=== PATIENT | female | born 1970 | race Caucasian/White ===

== ENCOUNTER → 2020-04-30 13:50 | Outpatient (CLI) | payer OTHER, SELFPAY ==
--- NOTE | ~2020-04-30 | XR_ITS ---
XR_CERV2-3V_CR DATE: 04/30/2020 14:09 INDICATION: Cervical radiculopathy TECHNIQUE: AP, lateral, swimmer's, open-mouth and odontoid views COMPARISON: None FINDINGS: There is reversal cervical curvature. C1 and C2 are normally aligned and the odontoid process is intact. There is minimal retrolisthesis at C4-5. There is fusion of the C5 and C6 vertebral bodies, likely postsurgical. There is moderately prominent degenerative disc disease at C3-4 and C4-5 as well as C6-7. No fracture or dislocation or locked facet or prevertebral soft tissue swelling is detected. Bilateral cervical ribs. IMPRESSION: Reversal of cervical curvature Status post anterior fusion at C5-6 Degenerative disc disease at C3-4, C4-5 and C6-7 Bilateral cervical ribs Reviewed, dictated and finalized at [facility]. Reviewed, dictated and finalized at location B.
== END ==
PROVIDERS: Visit Provider Internal Medicine
DX: M54.12 Radiculopathy, cervical region (principal); Z98.1 Arthrodesis status; M50.321 Other cervical disc degeneration at C4-C5 level; M50.322 Other cervical disc degeneration at C5-C6 level; M50.323 Other cervical disc degeneration at C6-C7 level
CPT/HCPCS: 72040

== ENCOUNTER 2020-05-15 07:13 | Outpatient (CLI) | payer OTHER, BC, SELFPAY ==
--- NOTE | ~2020-05-15 | MM_ITS ---
EXAMINATION: MM screening emilia BI w pretty HISTORY: Screening mammogram TECHNIQUE: Craniocaudal and mediolateral oblique 3-D tomosynthesis images were obtained and synthetic 2-D images were generated. CAD analysis was submitted and interpreted. COMPARISON: 05/11/2019, 05/09/2018, 05/03/2017 bilateral digital screening mammogram examinations BREAST PARENCHYMAL COMPOSITION: There are scattered areas of fibroglandular density. FINDINGS: Biopsy marker on the left; history of prior benign left breast biopsies. There is no eviden ce of suspicious mass, calcification, or architectural distortion to suggest malignancy in either stephanie ast. Occasional benign calcifications. There has been no suspicious interval change. IMPRESSION: 1. No mammographic evidence of malignancy. 2. Recommend routine screening mammography in one year. BI-RADS Category 2: Benign finding(s). Reviewed, dictated and finalized at location A.
== END 2020-05-15 07:14 | disposition home or self-care (01) ==
PROVIDERS: PCP Internal Medicine; Visit Provider Obstetrics & Gynecology
DX: Z12.31 Encounter for screening mammogram for malignant neoplasm of breast (principal)
CPT/HCPCS: 77063; 77067

== ENCOUNTER → 2021-02-21 03:03 | Outpatient (CLI) | payer OTHER, BC, SELFPAY ==
[2021-02-21 19:46] LABS: SARS-CoV-2 RNA PCR Negative
== END ==
PROVIDERS: PCP Internal Medicine; Visit Provider Internal Medicine Gastroenterology
DX: Z01.812 Encounter for preprocedural laboratory examination (principal); Z20.822 Contact with and (suspected) exposure to COVID-19
CPT/HCPCS: C9803; U0003; U0005

== ENCOUNTER 2021-02-24 00:48 | Day surgery (SDC) | payer OTHER, BC, SELFPAY ==
[2021-02-11 15:42] VITALS: BMI 23.1
--- NOTE | 2021-02-11 15:56 | PC.NURSE ---
Pt. was COVID + 07/2021. Symptoms included headache, sore throat, and fatigue. No hospitalization required. Gary Wilks RN 02/11/21 [id number]
[2021-02-24 07:03] VITALS: BP 120/64; PULSE 63; RESP 17; TEMP 35.8; O2SAT 99; BMI 24.3
[2021-02-24] MEDS: LACTATED RINGERS 1,000 ML 150 ML IV CONT (07:11)
--- NOTE | 2021-02-24 07:24 | P.PNAN_ITS ---
Anes - Initial Pre Proc Eval Procedure: Operation Date: 02/24/21 07:30 Proposed Procedures p Screening Colonoscopy - Heath Hinds MD Date/Time: 02/24/21 07:24 Surgeon: Heath Hinds MD Pre Op Diagnosis: Neoplasm Screening Patient Data Age: 50 Gender: F Height: 5 ft 5 in Weight: 66.3 kg Last Vital Signs Temp 96.4 F L 02/24/21 07:03 Pulse 63 02/24/21 07:03 Resp 17 02/24/21 07:03 BP 120/64 02/24/21 07:03 Pulse Ox 99 02/24/21 07:03 Allergies Allergy/AdvReac Type Severity Reaction Status Date / Time Penicillins Allergy Mild unknown Verified 02/24/21 07:02 Home Medications Medication Instructions Recorded Confirmed Type levocetirizine 5 mg tablet 5 mg PO DAILY #90 tablet 11/21/19 02/24/21 Rx rosuvastatin 20 mg tablet See Rx Instructions .ROUTE 11/21/20 02/24/21 Rx .COMPLEX #90 tablet cetirizine [Zyrtec] 10 mg PO DAILY 02/11/21 02/24/21 History Patient hx anesthesia problems: none Family hx anesthesia problems: none [facility] Past Medical History Medical History (Updated 02/24/21 @ 07:20 by Oswaldo Roland MD) Dyslipidemia GERD (gastroesophageal reflux disease) Social History Social History (System 09/06/19 @ 10:43 by Shruti Atkins) Smoking status: Never smoker Alcohol intake: never Drinks per week: 3 Living arrangements: with family Spiritual care concerns: No Anes - Eval Final PreProcedure Day of Procedure 02/24/21 07:24 Patient weight: overweight Heart: regular rate and rhythm Lungs: clear to auscultation Airway: Mallampati scale class II Neurological: alert and oriented Last oral intake: >/= 8 hours ASA classification: II Emergent: no Anesthetic plan: proceed Anesthesia type and monitoring: general GIVS and standard monitoring Informed Consent: The patient's anesthetic plan and its attendant risks and benefits were discussed with the patient/family/POA. Questions were solicited and answers provided to the satisfaction of the patient/family/POA.
--- NOTE | 2021-02-24 07:28 | PM.HPGS ---
History of Present Illness History of Present Illness Consent: Risks, benefits, and alternatives have been discussed and questions answered. Patient agrees to proceed with procedure. Chief complaint: Neoplasm Screening Narrative: Syeda Jenkins is a 50 year old female here for first screening colonoscopy Review of Systems Constitutional: Constitutional: Denies headache(s) and Denies weakness Eyes: Eyes: Denies blurry vision ENT: Reports Normal hearing present, Denies headache(s) and Denies neck pain Cardiovascular: Cardiovascular: Denies chest pain and Denies dyspnea Respiratory: Respiratory: Denies dyspnea Gastrointestinal: Gastrointestinal: Reports no additional gastrointestinal complaints Genitourinary: Genitourinary: Denies dysuria Musculoskeletal: Musculoskeletal: Denies neck pain Integumentary/Breasts: Skin/Breast: Denies dry skin Neurologic: Reports Normal hearing present, Denies headache(s) and Denies weakness Psychiatric: Psychiatric: Denies anxiety Endocrine: Endocrine: Denies change in body appearance Hematologic/Lymphatic: Hematologic/Lymphatic: Denies easy bleeding Allergic/Immunologic: Allergic/Immunologic: Denies urticaria [facility] Past Medical History Medical History (Updated 02/24/21 @ 07:29 by Heath Hinds MD) Colon cancer screening Dyslipidemia GERD (gastroesophageal reflux disease) Social History Social History (System 09/06/19 @ 10:43 by Shruti Atkins) Smoking status: Never smoker Alcohol intake: never Drinks per week: 3 Living arrangements: with family Spiritual care concerns: No Meds Home Medications and Allergies Home Medications Medication Instructions Recorded Confirmed Type levocetirizine 5 mg tablet 5 mg PO DAILY #90 tablet 11/21/19 02/24/21 Rx rosuvastatin 20 mg tablet See Rx Instructions .ROUTE 11/21/20 02/24/21 Rx .COMPLEX #90 tablet cetirizine [Zyrtec] 10 mg PO DAILY 02/11/21 02/24/21 History Allergies Allergy/AdvReac Type Severity Reaction Status Date / Time Penicillins Allergy Mild unknown Verified 02/24/21 07:02 Vital Signs Vital Signs - 24 hr 02/24/21 07:03 Temperature 96.4 F L Pulse Rate 63 Respiratory Rate 17 Blood Pressure 120/64 Pulse Oximetry 99 Exam Const: General: comfortable and no acute distress HENMT: General nose exam: Normal nares present Eyes: General: appearance normal, both eyes and all related structures Neck: Neck: no JVD Resp: Auscultation: clear to auscultation bilaterally Cardio: Rate: regular rate Rhythm: regular rhythm GI: Inspection: non-distended GI Palp: Yes Soft to palpation Skin: General skin exam: normal color Neuro: General: gait normal Speech: normal speech Extrem: General: normal to inspection Psych: Mental Status: mental status grossly normal Assessment and Plan Assessment and plan (1) Colon cancer screening: Code(s): Z12.11 - Encounter for screening for malignant neoplasm of colon Status: Acute Assessment and Plan: colonoscopy
[2021-02-24 07:49] VITALS: BP 81/38; PULSE 57; RESP 18; O2SAT 100
[2021-02-24 07:59] VITALS: BP 79/40; PULSE 54; RESP 18; O2SAT 100
[2021-02-24 08:09] VITALS: BP 86/50; PULSE 56; RESP 18; O2SAT 100
== END 2021-02-24 08:17 | disposition home or self-care (01) ==
PROVIDERS: PCP Internal Medicine; Visit Provider Internal Medicine Gastroenterology
PROC: 0DJD8ZZ Inspection of Lower Intestinal Tract, Via Natural or Artificial Opening Endoscopic (ICD-10-PCS; CPT 45378; principal; 2021-02-24 07:30)
DX: Z12.11 Encounter for screening for malignant neoplasm of colon (principal); K64.8 Other hemorrhoids; K21.9 Gastro-esophageal reflux disease without esophagitis; E78.5 Hyperlipidemia, unspecified
CPT/HCPCS: 45378; C9803; J7120; U0003; U0005

== ENCOUNTER 2021-05-18 07:10 | Outpatient (CLI) | payer OTHER, BC, SELFPAY ==
--- NOTE | ~2021-05-18 | MM_ITS ---
EXAMINATION: MM screening [facility] BI w pretty HISTORY: Screening mammogram TECHNIQUE: Craniocaudal and mediolateral oblique 3-D tomosynthesis images were obtained and synthetic 2-D images were generated. CAD analysis was submitted and interpreted. COMPARISON: 05/15/2020, 05/11/2019, 05/09/2018 BREAST PARENCHYMAL COMPOSITION: There are scattered areas of fibroglandular density. FINDINGS: There is no evidence of suspicious mass, calcification, or architectural distortion to sugg est malignancy in either breast. There has been no suspicious interval change. IMPRESSION: 1. No mammographic evidence of malignancy. 2. Recommend routine screening mammography in one year. BI-RADS Category 1: Negative Reviewed, dictated and finalized at location A.
== END 2021-05-18 07:11 | disposition home or self-care (01) ==
LOC: ANHIMG 07:11
PROVIDERS: PCP Internal Medicine; Visit Provider Obstetrics & Gynecology
DX: Z12.31 Encounter for screening mammogram for malignant neoplasm of breast (principal)
CPT/HCPCS: 77063; 77067

== ENCOUNTER 2022-05-20 07:08 | Outpatient (CLI) | payer OTHER, BC, SELFPAY ==
--- NOTE | ~2022-05-20 | MM_ITS ---
EXAMINATION: MM screening emilia BI w pretty HISTORY: Screening TECHNIQUE: Craniocaudal and mediolateral oblique 3-D tomosynthesis images were obtained and synthetic 2-D images were generated. CAD analysis was submitted and interpreted. COMPARISON: Comparison to multiple prior studies sequentially, with oldest reviewed study dated 04/2016. BREAST PARENCHYMAL COMPOSITION: There are scattered areas of fibroglandular density. FINDINGS: There is a cluster of small subareolar masses of the right breast, largest measuring 4 mm. The left breast is stable without evidence for malignancy. No suspicious calcifications or architectu ral distortion. IMPRESSION: 1. Cluster of small subareolar right breast masses measuring up to 4 mm. 2. Additional mammographic views and possible breast ultrasound are recommended. BI-RADS Category 0: Incomplete: Needs additional imaging evaluation. Reviewed, dictated and finalized at location A. IMPRESSION: 1. Cluster of small subareolar right breast masses measuring up to 4 mm. 2. Additional mammographic views and possible breast ultrasound are recommended . BI-RADS Category 0: Incomplete: Needs additional imaging evaluation.
== END 2022-05-20 07:09 | disposition home or self-care (01) ==
PROVIDERS: PCP Internal Medicine; Visit Provider Obstetrics & Gynecology
DX: Z12.31 Encounter for screening mammogram for malignant neoplasm of breast (principal); R92.8 Other abnormal and inconclusive findings on diagnostic imaging of breast
CPT/HCPCS: 77063; 77067

== ENCOUNTER → 2022-06-07 07:46 | Outpatient (CLI) | payer OTHER, BC, SELFPAY ==
--- NOTE | ~2022-06-07 | MMUS_ITS ---
EXAMINATION: MM diagnostic emilia RT w pretty, US breast RT limited HISTORY: Cluster of small subareolar right breast masses measuring up to 4 mm reported on 05/20/2022 s creening mammogram TECHNIQUE: Additional 3-D tomosynthesis images of the right breast were performed and synthetic 2-D i mages were generated. CAD analysis was submitted and interpreted. High resolution targeted right suba reolar and 5-7:00 right breast ultrasound was performed. COMPARISON: 05/20/2022 bilateral screening mammogram FINDINGS: MAMMOGRAPHIC FINDINGS: At least 2 circumscribed approximately 3 and 3.5 mm opacities are noted approximately 2 cm deep to th e nipple in the subareolar area. No suspicious mammographic mass or architectural distortion, maligna nt constipation, skin thickening or retraction is detected. ULTRASOUND: There are 2 small circumscribed sonolucencies measuring approximately 2.6 x 3 x 4.1 mm and 3.4 x 2.9 x 3.3 mm in the subareolar area, consistent with small cyst, corresponding to the mammographic opacit ies. No suspicious mass or shadowing is evident in the subareolar area or between 5-7 o'clock. IMPRESSION: 1. Benign findings 2. Routine annual mammographic screening is recommended BI-RADS Category 2: Benign finding(s). Reviewed, dictated and finalized at location A. IMPRESSION: 1. Benign findings 2. Routine annual mammographic screening is recommended BI-RADS Category 2: Benign finding(s).
== END ==
PROVIDERS: Visit Provider Obstetrics & Gynecology
DX: R92.8 Other abnormal and inconclusive findings on diagnostic imaging of breast (principal)
CPT/HCPCS: 76642; 77061; 77065; G0279

== ENCOUNTER → 2023-06-13 07:38 | Outpatient (CLI) | payer OTHER, BC, SELFPAY ==
--- NOTE | ~2023-06-13 | MMUS_ITS ---
EXAMINATION: MM diagnostic emilia BI w pretty, US breast LT limited HISTORY: Bilateral breast pain TECHNIQUE: Additional 3-D tomosynthesis images of the breasts were performed and synthetic 2-D images were generated. CAD analysis was submitted and interpreted. High resolution Limited left breast ultr asound was performed. COMPARISON: Comparison to multiple prior studies sequentially, with oldest reviewed study dated 05/09. BREAST PARENCHYMAL COMPOSITION: Breast composed of scattered areas of fibroglandular density FINDINGS: MAMMOGRAPHIC FINDINGS: There are developing asymmetries in the lower inner quadrant of the left breast as well as superiorly in the left breast. There are no suspicious calcifications or architectural distortion. ULTRASOUND: Limited left breast ultrasound: At 7:00, 4 cm from the nipple there is an oval hypoechoic mass with l ow level internal echoes measuring 3 mm. There is no posterior features or internal vascularity. At 3 :00 near the areola there is an oval hypoechoic 4 mm mass with low level internal echoes, no signific ant posterior features or internal vascularity. At 2:00, 1 cm from the nipple there is a similar-appe aring 3 mm hypoechoic mass. At 1:00, 1 cm from the nipple there is a 2 mm cyst. IMPRESSION: 1. Probable benign left breast masses, most likely complicated cysts. 2. Recommend 6 month follow-up diagnostic left mammogram and ultrasound BI-RADS category 3, probably benign findings. Reviewed, dictated and finalized at location A. IMPRESSION: 1. Probable benign left breast masses, most likely complicated cysts. 2. Recommend 6 month follow-up diagnostic left mammogram and ultrasound BI-RADS category 3, probably benign findings.
== END ==
PROVIDERS: PCP Obstetrics & Gynecology; Visit Provider Obstetrics & Gynecology
DX: R92.8 Other abnormal and inconclusive findings on diagnostic imaging of breast (principal)
CPT/HCPCS: 76642; 77062; 77066; G0279

== ENCOUNTER 2023-12-12 07:43 | Outpatient (CLI) | payer OTHER, BC, SELFPAY ==
--- NOTE | ~2023-12-12 | MMUS_ITS ---
EXAMINATION: MM diagnostic emilia LT w pretty, US breast LT complete HISTORY: Follow-up left breast masses TECHNIQUE: Additional 3-D tomosynthesis images of the left breast were performed and synthetic 2-D im ages were generated. CAD analysis was submitted and interpreted. High resolution complete left breast ultrasound was performed. COMPARISON: Comparison to multiple prior studies sequentially, with oldest reviewed study dated 05/11. BREAST PARENCHYMAL COMPOSITION: Not dense: There are scattered areas of fibroglandular density. FINDINGS: MAMMOGRAPHIC FINDINGS: There are no suspicious masses, calcifications or architectural distortion in the left breast. There are tissue markers from previous benign biopsies. There are benign left breast calcifications. ULTRASOUND: Complete US of all 4 quadrants of the left breast and retroareolar region was reviewed. The areola there is a 3 mm simple cyst. No suspicious masses in the left breast to suggest malignancy . IMPRESSION: 1. No evidence for malignancy in the left breast. Benign findings. 2. Routine yearly screening mammogram and regular clinical breast examination are recommended. BI-RADS Category 2: Benign finding(s). Reviewed, dictated and finalized at location A. IMPRESSION: 1. No evidence for malignancy in the left breast. Benign findings. 2. Routine yearly screening mammogram and regular clinical breast examination a re recommended. BI-RADS Category 2: Benign finding(s).
== END 2023-12-12 07:44 ==
LOC: MICIMG 07:43
PROVIDERS: PCP Obstetrics & Gynecology; Visit Provider Obstetrics & Gynecology
DX: R92.8 Other abnormal and inconclusive findings on diagnostic imaging of breast (principal)
CPT/HCPCS: 76641; 77061; 77065; G0279

== ENCOUNTER 2024-05-04 15:12 | Outpatient (CLI) | payer OTHER, BC, SELFPAY ==
--- NOTE | ~2024-05-04 | MM_ITS ---
EXAMINATION: MM screening emilia BI w pretty HISTORY: Screening TECHNIQUE: Craniocaudal and mediolateral oblique 3-D tomosynthesis images were obtained and synthetic 2-D images were generated. CAD analysis was submitted and interpreted. COMPARISON: Comparison to multiple prior studies sequentially, with oldest reviewed study dated 05/15. BREAST PARENCHYMAL COMPOSITION: Not dense: There are scattered areas of fibroglandular density. FINDINGS: There is no evidence of suspicious mass, calcification, or architectural distortion to sugg est malignancy in either breast. There has been no suspicious interval change. IMPRESSION: 1. No mammographic evidence of malignancy. 2. Recommend routine screening mammography in one year. BI-RADS Category 1: Negative Reviewed, dictated and finalized at location B.
== END 2024-05-04 15:13 | disposition home or self-care (01) ==
PROVIDERS: PCP Nurse Practitioner; Visit Provider Obstetrics & Gynecology
DX: Z12.31 Encounter for screening mammogram for malignant neoplasm of breast (principal)
CPT/HCPCS: 77063; 77067

== ENCOUNTER 2024-11-07 11:03 | Outpatient (CLI) | payer OTHER, BC, SELFPAY ==
--- NOTE | ~2024-11-07 | US_ITS ---
EXAMINATION: US pelvic complete w TV DATE: 11/07/2024 11:29 INDICATION: Left lower quadrant abdominal and pelvic pain TECHNIQUE: Multiple transabdominal and endovaginal sonographic images of the pelvis were obtained. COMPARISON: None. FINDINGS: The retroverted uterus measures 8.6 x 6.3 x 6.0 cm. The endometrial complex measures 8 mm in thickne ss. There is heterogeneous echogenicity myometrium with numerous tiny anechoic myometrial subendometr ial cysts with associated refraction artifact resulting in a striated appearance consistent with diff use adenomyosis. The right ovary measures 2.3 x 1.5 x 2.0 cm. The left ovary measures 2.5 x 1.4 x 1.1 cm. There is normal vascular flow in the ovaries. There is small amount of likely physiologic free f luid in the pelvis. IMPRESSION: 1. Heterogeneous myometrium with numerous tiny anechoic myometrial and some endometrial cysts consist ent with diffuse adenomyosis. Otherwise unremarkable pelvic ultrasound. Reviewed, dictated and finalized at location A. [employer] ASSOCIATE IMPRESSION: 1. Heterogeneous myometrium with numerous tiny anechoic myometrial and some end ometrial cysts consistent with diffuse adenomyosis. Otherwise unremarkable pelv ic ultrasound.
== END 2024-11-07 11:04 | disposition home or self-care (01) ==
LOC: GOSHIMG 11:04
PROVIDERS: PCP Obstetrics & Gynecology; Visit Provider Obstetrics & Gynecology
DX: R10.2 Pelvic and perineal pain (principal)
CPT/HCPCS: 76830; 76856

== ENCOUNTER 2024-11-16 09:11 | Day surgery (SDC) | payer OTHER, BC, SELFPAY ==
--- NOTE | 2024-11-14 15:48 | PM.IMHP ---
H&P: HPI History of Present Illness Date/Time: 11/14/24 15:48 Chief Complaint: Postmenopausal bleeding Narrative: This 54-year-old female with postmenopausal bleeding after 2 years. Ultrasound showed the endometrial 8mm. Light of that she hysteroscopy dilatation curettage risks and benefits reviewed exclusive aspiration bleeding transfusion perforation bowel bladder ureters or other organs with need for open laparotomy. She received the [facility] [place]out entitled hysteroscopy. She had questions answered to her satisfaction. She asked to proceed Review of Systems Review of Systems: All systems reviewed & are unremarkable except as noted in HPI and below Constitutional: Constitutional: Denies headache(s) and Denies weakness Eyes: Eyes: Denies blurry vision ENT: Reports Normal hearing present, Denies headache(s) and Denies neck pain Cardiovascular: Cardiovascular: Denies chest pain and Denies dyspnea Respiratory: Respiratory: Denies dyspnea Gastrointestinal: Gastrointestinal: Reports no additional gastrointestinal complaints Genitourinary: Genitourinary: Denies dysuria Musculoskeletal: Musculoskeletal: Denies neck pain Integumentary/Breasts: Skin/Breast: Denies dry skin Neurologic: Reports Normal hearing present, Denies headache(s) and Denies weakness Psychiatric: Psychiatric: Denies anxiety Endocrine: Endocrine: Denies change in body appearance Hematologic/Lymphatic: Hematologic/Lymphatic: Denies easy bleeding Allergic/Immunologic: Allergic/Immunologic: Denies urticaria PMFSH Past Medical History Medical History Colon cancer screening GERD (gastroesophageal reflux disease) Dyslipidemia Social History Social History Smoking status: Never smoker Alcohol intake: current Drinks per week: 3 Lack of Transportation: No Lack of Food: Never True Current Housing: I Have Housing Concerned About Future Housing: No Difficulty Paying Gas/Electric Bills: No Difficulty Paying for Meds: No Currently Unemployed: No Education: Master's Degree or Higher Difficulty w/ Childcare or Family Care: No Living arrangements: with family Spiritual care concerns: No Meds Home Medications and Allergies Home Medications ?Medication ?Instructions ?Recorded ?Confirmed ?Type levocetirizine 5 mg tablet (Xyzal) 5 mg PO DAILY 06/13/24 06/13/24 History fluticasone propionate 50 See Rx Instructions .Route 07/12/24 Rx mcg/actuation nasal .COMPLEX #48 grams spray,suspension rosuvastatin 20 mg tablet See Rx Instructions .Route 07/12/24 Rx .COMPLEX #90 tabs Allergies Allergy/AdvReac Type Severity Reaction Status Date / Time Penicillins Allergy Mild unknown Verified 06/13/24 07:22 Exam Const: General: cooperative, healthy appearing and comfortable Nutritional Appearance: average body habitus Orientation/consciousness: oriented to person, oriented to place and oriented to time HENMT: Head: normal to inspection Resp: Effort & Inspection: normal respiratory effort Cardio: Rate: regular rate Rhythm: regular rhythm Heart sounds: S1 normal heart sound present and S2 normal heart sound present GI: Inspection: normal to inspection Auscultation: normal bowel sounds : External Female Exam: normal external appearance Speculum Exam - Vagina: normal appearance of the vagina and vaginal bleeding Speculum Exam - Cervix: normal appearance of the cervix Bimanual exam- vagina & uterus: enlarged Bimanual Exam- Adnexa, other: normal adnexae Assessment and Plan Assessment and plan (1) Postmenopausal bleeding: Code(s): N95.0 - Postmenopausal bleeding Status: Acute Plan Proceed with hysteroscopy dilatation curettage
--- NOTE | 2024-11-15 08:42 | PC.NURSE ---
Report to the Outpatient Waiting Room, entrance under the green pavilion located off [facility], at time _0915_ on date _[id number]_. Planned Procedure Time: _1115_.? Time changes happen often and if your time is changed the preop area will call you the afternoon before. - You and your visitor will be asked to self-screen and do not enter if you have any COVID symptoms. Please call surgeon if you need to reschedule. - A mask is optional within the hospital at this time. Patients may have clear liquids (water, carbonated beverages, clear teas, apple juice) until 3 hours prior to surgery with a maximum of 20 ounces. - No food from midnight until time of surgery and no smoking, or chewing tobacco (or any form of nicotine). No chewing gum, candy or mints. Take only the following medications with a SIP of water on the morning of surgery: __Flonase if needed.__ DO NOT STOP ANY OF YOUR OTHER PRESCRIPTION MEDICATIONS PRIOR TO SURGERY EXCEPT THE FOLLOWING Hold all vitamins and supplements for 3 days per anesthesiologist. Medications to discontinue per physician Date to take last dose__Stop vitamins now.___ Please no make-up, nail hong konger, hairspray, perfume, deodorant, or body powder the day of surgery.? No jewelry (including any body piercings) or valuables the day of surgery, leave them at home.? Please take a shower or bath the night before, or the morning of, surgery with an antibacterial soap.? Wear comfortable, loose fitting clothing.? - Jewelry must be removed prior to entering the operating room.? Rings and piercings that are not removed may be cut off. - The hospital will not accept responsibility for valuables.? - Please leave all valuables, including medications, at home the day of surgery. If you are going home after surgery, a licensed screw driver operator must drive you home.? - NO public transportation without another adult if you receive anesthesia. - We recommend that an adult stay with you for 24 hours following discharge. - We also recommend that you do not drive, make important decision, drink alcoholic beverages, or take any drugs that were not prescribed by your health care provider for at least 24 hours after your discharge time. Follow any additional instructions given to you from your surgeon. Telephone instructions given to __Syeda Ann__and asked if any additional questions and then verbalized understanding. Patient advised to call surgeon office or pre surgery nurse liaison [phone] if any additional questions.
--- NOTE | 2024-11-16 06:24 | WPDHPUPDATE1 ---
History and Physical Update Update Date/Time: 11/16/24 06:24 History and Physical has been reviewed, including an updated exam of the patient. There are NO changes in the patient's condition. Risks, benefits, and alternatives have been discussed and questions answered. Patient agrees to proceed with procedure.
--- OUTSIDE RECORDS SUMMARY | 2024-11-16 09:53 | XMS_ITS | Clinical Summary ---
Author Organization [facility] [employer] Address [address] [place] [address] Care Team Providers Care Embroidery Patternmaker Name Role Phone Dharmesh Rhoades MD Primary Care Provider [phone] Source Comments [facility] [employer],non-owned Affiliates and Associated Physician Practices is amultiple site organization consisting of ambulatory clinics and hospital sitesin [place], [place], [place] and [place]. This disclosure is being madepursuant to the Care Everywhere program and may not contain all information available regarding this patient. Last updated 18.[facility] [employer] Allergies Active Allergy Reactions Criticality Noted Date Comments Penicillins Urticaria Medium 12/24/2017 Medications * Be aware that medications may not be up to date on this document. Alwaysverify current medications with the patient. Medication Sig Dispensed Refills Start Date End Date Status ROSUVASTATIN CALCIUM PO Active fluticasone propionate (FLONASE ALLERGY RELIEF) 50 MCG/ACT nasal sprayIndications:Acut e pansinusitis, recurrence not specified [place] 2 sprays into each nostril once daily 1 bottles 12/24/2017 Active albuterol HFA (PROVENTIL;VENTOLIN;P ROAIR) 108 (90 BASE) MCG/ACT inhalerIndications:Ac tanana pansinusitis, recurrence not specified Inh[place] 2 puffs by mouth every 4 hours as needed for Cough 1 Inhaler 12/24/2017 Active Social History Tobacco Use Types Packs/Day Years Used Date Smoking Tobacco: Never Smokeless Tobacco: Never Sex and Gender Information Value Date Recorded Sex Assigned at Not on file Gender Identity Not on file Sexual Orientation Not on file Last Filed Vital Signs Vital Sign Reading Time Taken Comments Blood Pressure 112/86 12/24/2017 11:51 AM CDT Pulse 81 12/24/2017 11:51 AM CDT Temperature 36.5 C (97.7 F) 12/24/2017 11:51 AM CDT Respiratory Rate 16 12/24/2017 11:51 AM CDT Oxygen Saturation 96% 12/24/2017 11:51 AM CDT Inhaled Oxygen Concentration - - Weight 63.5 kg (140 lb) 12/24/2017 11:51 AM CDT Height 165.1 cm (5' 5 ) 12/24/2017 11:51 AM CDT Body Mass Index 23.3 12/24/2017 11:51 AM CDT Plan of Treatment Health Maintenance Due Date Last Done Comments COLOGUARD (AGES 45-75) - COL ON CA SCREENING 1969 COLON MONITORING 1969 COLONOSCOPY - COLON CA SCREENING 1969 CT COLONOGRAPHY - COLON CA SCREENING 1969 Colorectal Cancer Screening 1969 FIT - COLON CA SCREENING 1969 FLEX SIG - COLON CA SCREENING 1969 MAMMOGRAM 1969 HIV SCREENING 1984 HEPATITIS C SCREENING 08/02/1987 DTAP/TDAP/TD VACCINES (1 - Tdap) 1988 HEPATITIS B VACCINE (1 of 3 - 19+ 3-dose series) 1988 PAP with HPV 1999 PNEUMOCOCCAL VACCINE 50+ (1 of 1 - PCV) 2019 ZOSTER VACCINE (1 of 2) 2019 COVID-19 VACCINE (1 - 2023-2 5 season) 2024 INFLUENZA VACCINE (#1) 2024 DEPRESSION SCREENING 09/26/2024 HIB VACCINE Aged Out No longer eligi ble based on patient's age to complete this topic HPV VACCINE Aged Out No longer eligi ble based on patient's age to complete this topic MENINGOCOCCAL (Group B) VACCINE Aged Out No longer eligible based on patient's age to complete this topic MENINGOCOCCAL VACCINE Aged Out No eder sisi eligible based on patient's age to complete this topic PNEUMOCOCCAL VACCINE Aged Out No long er eligible based on patient's age to complete this topic Care Teams Embroidery Patternmaker Relationship Specialty Start Date End Date Dharmesh Rhoades MD PCP - General 10/05/18
--- OUTSIDE RECORDS SUMMARY | 2024-11-16 09:53 | XMS_ITS | Referral Summary ---
Author Organization [facility] [employer] Address [address] [facility] [place] [place] [address] Care Team Providers Care Ornamental Ironworker Helper Name Role Phone Dharmesh Rhoades MD Primary Care Provider [phone] Source Comments [facility],non-[facility] Affiliates and Associated Physician Practices is amultiple site organization consisting of ambulatory clinics and hospital sitesin [place], [place], [place] and [place]. This disclosure is being madepursuant to the Care Everywhere program and may not contain all information available regarding this patient. Last updated 18.[facility] [employer] Allergies Active Allergy Reactions Criticality Noted Date Comments Penicillins Urticaria Medium 12/24/2017 Medications * Be aware that medications may not be up to date on this document. Alwaysverify current medications with the patient. Medication Sig Dispensed Refills Start Date End Date Status ROSUVASTATIN CALCIUM PO Active fluticasone propionate (FLONASE ALLERGY RELIEF) 50 MCG/ACT nasal sprayIndications:Acut e pansinusitis, recurrence not specified [place] 2 sprays into each nostril once daily 1 bottles 12/24/2017 Active albuterol HFA (PROVENTIL;VENTOLIN;P ROAIR) 108 (90 BASE) MCG/ACT inhalerIndications:Ac yurok pansinusitis, recurrence not specified Inhale 2 puffs [...] 12/24/2017 11:51 AM CDT Plan of Treatment Not on file Care Teams Ornamental Ironworker Helper Relationship Specialty Start Date End Date hDarmesh Rhoades MD PCP - General 10/05/18
--- OUTSIDE RECORDS SUMMARY | 2024-11-16 09:53 | XMS_ITS | Patient Health Summary ---
Author Organization [facility] Address [address] [facility] [place] [address] Care Team Providers Care Saddle And Harness Maker Name Role Phone Dharmesh Rhoades MD Primary Care Provider [phone] Note from [facility],non-owned Affiliates and Associated Physician Practices is amultiple site organization consisting of ambulatory clinics and hospital sitesin [place], [place], [place] and [place]. This disclosure is being madepursuant to the Care Everywhere program and may not contain all information available regarding this patient. Last updated 18.[facility] Allergies * Penicillins(Urticaria) -Medium Criticality Medications * Be aware that medications may not be up to date on this document. Alwaysverify current medications with the patient. * ROSUVASTATIN CALCIUM PO * fluticasone propionate (FLONASE ALLERGY RELIEF) 50 MCG/ACT nasal spray(Started 12/24/2017) [place] 2 sprays into each nostril once daily * albuterol HFA (PROVENTIL;VENTOLIN;PROAIR) 108 (90 BASE) MCG/ACT inhaler (Started 12/24/2017) Inhale 2 puffs by mouth every 4 hours as needed for Cough Social History Tobacco Use Types Packs/Day Years [...] Mass Index 23.3 12/24/2017 11:51 AM CDT Procedures * DERMATOPATHOLOGY(Performed 10/18/2018) * DERMATOPATHOLOGY(Performed 10/04/2018) Results * DERMATOPATHOLOGY (10/18/2018 12:00 AM DAMAGE ADJUSTER) Only the most recent of2 resultswithin the time period is included. Case Report Dermatopathology Report Case: [id number] Authorizing Provider: Gustabo Parham MD Collected: 10/18/2018 12:00 AM Pathologist: Urmila Menchaca MD Received: 10/19/2018 02:20 PM Specimens: A) - Skin, top of right shoulder B) - Skin, left anterior shoulder 3:42 PM [facility] DERMATOPATHOLOGY LABORATORY Final Diagnosis Specimen A. 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 SKIN, left anterior shoulder: BASAL CELL CARCINOMA, SUPERFICIAL MULTIFOCAL (C44.619) 3:42 PM [facility] DERMATOPATHOLOGY LABORATORY Clinical History A: R/O HAK, Alexander's, BCC. B: R/O HAK, Alexander's, BCC. 3:42 PM [facility] DERMATOPATHOLOGY LABORATORY Gross Description Specimen A: Received is one formalin filled container labeled with the patient's name and designated top of right shoulder. The specimen consists of a shave biopsy measuring [id number]. Jar 0. Specimen B: Received is one formalin filled container labeled with the patient's name and designated left anterior shoulder. The specimen consists of a shave biopsy measuring 0q7x9jd. Jar 0. 3:42 PM [facility] DERMATOPATHOLOGY LABORATORY Microscopic Description Specimen A. SKIN, top of right shoulder: Sections show hyperkeratosis, papillomatosis, and acanthosis. There is vacuolar degeneration with hypergranulosis of the stratum granulosum and stratum spinosum. Specimen B. SKIN, left anterior shoulder: Attached to the undersurface of the epidermis, there are small aggregates of basaloid cells with a high nuclear to cytoplasmic ratio and peripheral palisading. 9 3:42 PM [facility] DERMATOPATHOLOGY LABORATORY Disclaimer An external and internal positive and negative controls are appropriate for the histochemical, immunohistochemical and immunofluorescence stain(s) in this case (if any), except where stated explicitly. The performance characteristics of the stain(s) cited in this report were developed and its performance characteristic determined by the Dermatopathology Laboratory at [facility], directed by Dr. Zabrina Dowling. These tests need not be, and therefore are not, approved by the [place] Food and Drug Administration. The tests are used for clinical purposes. Billing Codes Specimen Charges Stain Charges 68877 15443 1 1 9 3:42 PM [facility] DERMATOPATHOLOGY LABORATORY Embedded Images 9 3:42 PM [facility] DERMATOPATHOLOGY LABORATORY Pathology/Cytology TISSUE SPECIMEN FROM SKIN / Unknown 10/18/2018 10/19/2018 2:20 PM DAMAGE ADJUSTER Miscellaneous samples (specimen) TISSUE SPECIMEN FROM SKIN / Unknown 10/18/2018 10/19/2018 2:20 PM DAMAGE ADJUSTER Gustabo Parham MD LAB - PATHOLOGY/CYTO LOGY ORDERABLES DERMATOPATHOLOGY LABORATORY [facility] - Department of Dermatology [address] [place] [address], 5th Floor Lab [address] [phone] Care Teams Saddle And Harness Maker Relationship Specialty Start Date End Date Dharmesh Rhoades MD PCP - General 10/05/18
--- OUTSIDE RECORDS SUMMARY | 2024-11-16 09:53 | XMS_ITS | Encounter Summary ---
Author Organization [facility] Address [address] [facility] [place] [address] Care Team Providers Care Coin Wrapping Machine Operator Name Role Phone Dharmesh Rhoades MD Primary Care Provider [phone] Encounter Details Date Type Department Care Team (Late st Contact Info) Description 10/19/2018 Lab Requisition [facility] DermPath Lab [address] [place] [id number] Gustabo Parham MD [address] [place] [address] Social History Tobacco Use Types Packs/Day Years Used Date Smoking Tobacco: Never Smokeless Tobacco: Never Sex and Gender Information Value Date Recorded Sex Assigned at Not on file Gender Identity Not on file Sexual Orientation Not on file documented as of this encounter Plan of Treatment Not on file documented as of this encounter Procedures Procedure Name Priority Date/Time Associated Diagnosis Comments DERMATOPATHOLOGY Routine 10/18/2018 12:0 0 AM [employer] documented in this encounter Results * DERMATOPATHOLOGY (10/18/2018 12:00 AM [facility]) Case Report Dermatopathology Report Case: [id number] Authorizing Provider: Gustabo Parham MD Collected: 10/18/2018 12:00 AM Pathologist: Urmila Menchaca MD Received: 10/19/2018 02:20 PM Specimens: A) - Skin, top of right shoulder B) - Skin, left anterior shoulder 9 3:42 PM [facility] DERMATOPATHOLOGY LABORATORY Final Diagnosis Specimen A. 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 SKIN, left anterior shoulder: BASAL CELL CARCINOMA, SUPERFICIAL MULTIFOCAL (C44.619) 3:42 PM [facility] DERMATOPATHOLOGY LABORATORY Clinical History A: R/O HAK, Alexander's, BCC. B: R/O HAK, Alexander's, BCC. 3:42 PM [facility] DERMATOPATHOLOGY LABORATORY Gross Description Specimen A: Received is one formalin filled container labeled with the patient's name and designated top of right shoulder. The specimen consists of a shave biopsy measuring 3k9e6ls. Jar 0. Specimen B: Received is one formalin filled container labeled with the patient's name and designated left anterior shoulder. The specimen consists of a shave biopsy measuring 1e7o1tp. Jar 0. 3:42 PM [facility] DERMATOPATHOLOGY LABORATORY Microscopic Description Specimen A. SKIN, top of right shoulder: Sections show hyperkeratosis, papillomatosis, and acanthosis. There is vacuolar degeneration with hypergranulosis of the stratum granulosum and stratum spinosum. Specimen B. SKIN, left anterior shoulder: Attached to the undersurface of the epidermis, there are small aggregates of basaloid cells with a high nuclear to cytoplasmic ratio and peripheral palisading. 3:42 PM [facility] DERMATOPATHOLOGY LABORATORY Disclaimer An external and internal positive and negative controls are appropriate for the histochemical, immunohistochemical and immunofluorescence stain(s) in this case (if any), except where stated explicitly. The performance characteristics of the stain(s) cited in this report were developed and its performance characteristic determined by the Dermatopathology Laboratory at [facility], directed by Dr. Zabrina Dowling. These tests need not be, and therefore are not, approved by the [place] Food and Drug Administration. The tests are used for clinical purposes. Billing Codes Specimen Charges Stain Charges 67026 90344 1 1 3:42 PM [facility] DERMATOPATHOLOGY LABORATORY Embedded Images 3:42 PM [facility] DERMATOPATHOLOGY LABORATORY Pathology/Cytology TISSUE SPECIMEN FROM SKIN / Unknown 10/18/2018 10/19/2018 2:20 PM [facility] Miscellaneous samples (specimen) TISSUE SPECIMEN FROM SKIN / Unknown 10/18/2018 10/19/2018 2:20 PM [facility] Gustabo Parham MD LAB - PATHOLOGY/CYTO LOGY ORDERABLES DERMATOPATHOLOGY LABORATORY [facility] - Department of Dermatology [address] [place] [address], 5th Floor Lab [address] [phone] documented in this encounter Visit Diagnoses Not on filedocumented in this encounter Care Teams Coin Wrapping Machine Operator Relationship Specialty Start Date End Date Dharmesh Rhoades MD PCP - General 10/05/18 documented as of this encounter
--- OUTSIDE RECORDS SUMMARY | 2024-11-16 09:53 | XMS_ITS | Continuity of Care Document ---
Author Organization [facility] Address [address] [place] [address] [place] [address] Phone Care Team Providers Care Rn Plastics Name Role Phone Cadena OD, Rosendo Unavailable Unavailable Procedures Procedure Date Eye Exam & Treatment Refraction Eye Exam & Treatment CL Replacement - Vistakon Disp W/BW Soft Tape TV Medical Refraction Eye Exam Established Pt No Charge Contact Lens Check CL Replacement - Vistakon Disp W/BW Soft Tape TV Medical Eye Exam & Treatment Refraction Eye Exam, New Patient Advance Directives Directive Yes / No Effective Date File Name No Information Encounters Encounter Description Practice Location Reason(s) For Visit Diagnoses Date Provider Providers Copied on Encounter [facility], [address] [place] [address] [address], [place], [place], [id number], tel:[phone] SEC [facility] No Information 7-201 0 Cadena OD Rosendo. [address] , [address], [place], [address], [place]. tel:[phone] [facility], [address] [place] [address] [address], [place], [place], [address], [place] tel:[phone] SEC [facility] No Information 9-200 9 Cadena OD Rosendo. [address], [place], [address], [place]. tel:[phone] [facility], [address], [place], [place], [address], [place] tel:[phone] [facility] [place] No Information Oct-0 3-200 8 Krishnasamy Alex. [address] [facility] [address], [place], [place], [facility], . tel:[phone] [facility], [address] [place] [address] [address], [place], [place], [id number], [place] tel:[phone] [facility] [place] No Information January-2 1-200 8 Cadena OD Rosendo. Critical access hospital[facility] , [address], [place], [place], [facility], [place]. tel:[phone] [facility], [address] [place] [address] [address], [place], [place], [address], tel:[phone] [facility] No Information January-1 3-200 8 Cadena OD Rosendo. Critical access hospital1 [facility] , [address], [place], [place], [facility], [place]. tel:[phone] [facility], [address] [place] [address] [address], [place], [place], [address], [place] tel:[phone] [facility] No Information 9-200 7 Latrice Lara. [address], [address], [place], [place], [address], [place]. tel:[phone] Family History Family Member Type Diagnosis Age At Onset No Information Payers Payer name Insurance type Covered libertarian ID Antonieta aguirre(s) [employer] [facility] [id number] Social History Type Description Quantity Date Captured Comments Sex Female Smoking Status No Information Chief Complaint And Reason For Visit No Information Reason For Referral Reason For Referral No Information History Of Present Illness Encounter Date Complaint History Of Prese nt Illness No Information Functional Status Date Functional Assessmen t No Information Instructions Date Instruction Additional Infor mation No Information Assessments Type Assessment Date No Information Patient Care Teams Name Effective Dates (start - stop) Status Members No Information
--- OUTSIDE RECORDS SUMMARY | 2024-11-16 09:53 | XMS_ITS | Encounter Summary ---
Author Organization [facility] Address [address] [facility] [place] [address] Care Team Providers Care Osteopathic Medicine Teacher Name Role Phone Dharmesh Rhoades MD Primary Care Provider [phone] Encounter Details Date Type Department Care Team (Late st Contact Info) Description 10/05/[address] [facility] DermPath Lab [address] [place] [phone] Gustabo Parham MD [address] [place] [address] Social History Tobacco Use Types Packs/Day Years [...] Priority Date/Time Associated Diagnosis Comments DERMATOPATHOLOGY Routine 10/04/2018 12:0 0 AM [employer] documented in this encounter Results * DERMATOPATHOLOGY (10/04/2018 12:00 AM [employer]) Case Report Dermatopathology Report Case: [id number] Authorizing Provider: Gustabo Parham MD Collected: 10/04/2018 12:00 AM Pathologist: Urmila Menchaca MD Received: 10/05/2018 12:07 PM Specimen: Skin, left jain 9 12:27 PM [employer] [facility] DERMATOPATHOLOGY LABORATORY Final Diagnosis Specimen A. SKIN, left jain: SQUAMOUS CELL CARCINOMA, WELL DIFFERENTIATED (C44.329) 9 12:27 PM [facility] DERMATOPATHOLOGY LABORATORY Clinical History R/O BCC, SCC, HAK. 12:27 PM [facility] DERMATOPATHOLOGY LABORATORY Gross Description Specimen A: Received is one formalin filled container labeled with the patient's name and designated left jain. The specimen consists of a shave biopsy measuring 4j1j7mo. Jar 0. 12:27 PM [facility] DERMATOPATHOLOGY LABORATORY Microscopic Description Specimen A. SKIN, left jain: Arising in the epidermis and extending into the dermis there are irregularly shaped aggregates of keratinocytes showing evidence of premature cornification. 12:27 PM [facility] DERMATOPATHOLOGY LABORATORY Disclaimer An external and internal positive and negative controls are appropriate for the histochemical, immunohistochemical and immunofluorescence stain(s) in this case (if any), except where stated explicitly. The performance characteristics of the stain(s) cited in this report were developed and its performance characteristic determined by the Dermatopathology Laboratory at [facility], directed by Dr. Zabrina Dowling. These tests need not be, and therefore are not, approved by the [place] Food and Drug Administration. The tests are used for clinical purposes. Billing Codes Specimen Charges Stain Charges 52473 1 12:27 PM [facility] DERMATOPATHOLOGY LABORATORY Embedded Images 12:27 PM [facility] DERMATOPATHOLOGY LABORATORY Pathology/Cytolog y TISSUE SPECIMEN FROM SKIN / Unknown 10/04/2018 10/05/2018 12:07 PM [employer] Gustabo Parham MD LAB - PATHOLOGY/CYTO LOGY ORDERABLES DERMATOPATHOLOGY LABORATORY [facility] - Department of Dermatology [facility] [facility], 5th [place] [address], [facility] [phone] documented in this encounter Visit Diagnoses Not on filedocumented in this encounter Care Teams Osteopathic Medicine Teacher Relationship Specialty Start Date End Date Dharmesh Rhoades MD PCP - General 10/05/18 documented as of this encounter
[2024-11-16 10:18] LABS: Hemoglobin 13.7 g/dL (12.0-15.0)
[2024-11-16 10:30] VITALS: BP 138/65; PULSE 72; RESP 14; TEMP 36.9; O2SAT 100
[2024-11-16] MEDS: ACETAMINOPHEN 500 MG TABLET 1000 MG PO (10:30)
[2024-11-16] MEDS: LACTATED RINGERS 1,000 ML 30 ML IV CONT (10:30)
--- NOTE | 2024-11-16 11:28 | P.PNAN_ITS ---
Anes - Initial Pre Proc Eval Procedure: Operation Date: 11/16/24 11:15 Proposed Procedures p Hysteroscopy, Dilation and Curettage - Himanshu Abreu MD Date/Time: 11/16/24 11:28 Surgeon: Himanshu Abreu MD Pre Op Diagnosis: post menopausal bleeding Patient Data Age: 54 Gender: F Height: 1.64 m Weight: Allergies Allergy/AdvReac Type Severity Reaction Status Date / Time Penicillins Allergy Mild unknown Verified 11/15/24 08:29 Home Medications ?Medication ?Instructions ?Recorded ?Confirmed ?Type levocetirizine 5 mg tablet (Xyzal) 5 mg PO DAILY 06/13/24 11/15/24 History fluticasone propionate 50 See Rx Instructions .Route 07/12/24 11/15/24 Rx mcg/actuation nasal .COMPLEX #48 grams spray,suspension rosuvastatin 20 mg tablet See Rx Instructions .Route 07/12/24 11/15/24 Rx .COMPLEX #90 tabs multivitamin with minerals-folic 1 tablet PO 11/15/24 History acid 200 mcg chewable tablet (Adult Multivitamin Gummies) hydrocodone 5 mg-acetaminophen 325 1 tablet PO Q4H PRN pain #20 tabs 11/16/24 Rx mg tablet Laboratory Tests 11/16/24 10:13 Hgb 13.7 g/dL (12.0-15.0) Hct 40.0 % (37.0-47.0) Patient hx anesthesia problems: none Family hx anesthesia problems: none Results Review: All pre-operative results and documents have been reviewed as part of the pre- operative evaluation. [facility] Past Medical History Medical History Colon cancer screening GERD (gastroesophageal reflux disease) Dyslipidemia Social History Social History Smoking status: Never smoker Alcohol intake: current Drinks per week: 3 Lack of Transportation: No Lack of Food: Never True Current Housing: I Have Housing Concerned About Future Housing: No Difficulty Paying Gas/Electric Bills: No Difficulty Paying for Meds: No Currently Unemployed: No Education: Master's Degree or Higher Difficulty w/ Childcare or Family Care: No Living arrangements: with family Spiritual care concerns: No Anes - Eval Final PreProcedure Day of Procedure 02/21/25 11:28 Patient weight: normal Heart: regular rate and rhythm Lungs: clear to auscultation and normal air movement Airway: Mallampati scale class II Neurological: alert and oriented Last oral intake: >/= 8 hours ASA classification: II Emergent: no Anesthetic plan: proceed Anesthesia type and monitoring: general GIVS and standard monitoring Results Review: All pre-operative results and documents have been reviewed as part of the pre- operative evaluation. Informed Consent: The patient's anesthetic plan and its attendant risks and benefits were discussed with the patient/family/POA. Questions were solicited and answers provided to the satisfaction of the patient/family/POA.
[2024-11-16] MEDS: LIDOCAINE 1% LOCAL INJ 10 ML VIAL INFILTRATE (11:33)
[2024-11-16] MEDS: KETOROLAC 30 MG/ML VIAL (*BKC) IV PUSH (11:51)
--- NOTE | 2024-11-16 11:53 | W.PM.PROC2 ---
Procedure Note - Detailed Date of Procedure 11/16/24 Pre-op Diagnosis post menopausal bleeding Post-op Diagnosis Same Procedure Performed Hysteroscopy/dilatation curettage Surgeon Himanshu Abreu MD Anesthesia MAC and Local Indications 54-year-old female with postmenopausal bleeding and enlarged uterus Findings Uterus is retroverted and sounded to 8cm. Benign-appearing endometrium Description of Procedure Patient was prepped draped in normal sterile fashion placed in dorsal lithotomy position. Under excellent IV sedation weighted speculum placed posterior fornix vagina. Anterior lip of the cervix grasped with single-tooth tenaculum. 2.5cc 1% xylocaine anesthesia placed at 2, 4, 8, 10:00 a.m. the cervix. Uterus sounded 8cm and noted be retro. 5mm visualizing hysteroscope was inserted no abnormalities were seen there were some clots in the strained out easily. The uterus was then scraped over the entire 360? until good grating sound was heard. The instruments withdrawn the patient was awakened went recovery in satisfactory condition. All sponge, needle, instrument counts were correct. There were no immediate complications Estimated Blood Loss 5 Drains No Packing No Pathology Yes Complications No immediate complications Condition Stable Disposition PACU
[2024-11-16 11:57] VITALS: BP 102/62; PULSE 70; RESP 14; O2SAT 98
[2024-11-16 12:25] VITALS: BP 110/66; PULSE 66; RESP 16
[2024-11-16 12:55] VITALS: BP 109/70; PULSE 74; RESP 16
== END 2024-11-16 13:15 | disposition home or self-care (01) ==
LOC: ANHSURGERY 09:12
PROVIDERS: PCP Nurse Practitioner; Visit Provider Obstetrics & Gynecology
PROC: 0U5B8ZZ Destruction of Endometrium, Via Natural or Artificial Opening Endoscopic (ICD-10-PCS; CPT 58563; principal; 2024-11-16 11:15)
DX: N95.0 Postmenopausal bleeding (principal); E78.5 Hyperlipidemia, unspecified; K21.9 Gastro-esophageal reflux disease without esophagitis; Z79.891 Long term (current) use of opiate analgesic
CPT/HCPCS: 58558; 36415; 85014; 85018; 88305; A9270; J1100; J1885; J2003; J2250; J2405; J2704; J3010; J7120

== ENCOUNTER 2024-11-21 12:11 | Emergency (ER) | payer OTHER, BC, SELFPAY ==
--- NOTE | ~2024-11-21 | CT_ITS ---
History: Headache and paresthesias PROCEDURE: CT head without contrast. COMPARISON: None TECHNIQUE: Axial imaging of the head performed from the skull base to the vertex without IV contrast. Sagittal a nd coronal reformations obtained. DLP: 605 mGy-cm FINDINGS: The ventricles are normal in size, shape and position. There is no mass, mass effect or midline shift. There is no abnormal extra-axial fluid collection or intracranial hemorrhage. Air-fluid level within the left sphenoid sinus. Remaining paranasal sinuses are unremarkable. The mas toid air cells are well aerated. No acute displaced fractures within the overlying cranium. Impression: No acute intracranial hemorrhage or suspicious mass effect. Inflammatory sinus disease. Reviewed, dictated and finalized at location A. P CUTTER Impression: No acute intracranial hemorrhage or suspicious mass effect. Inflammatory sinus disease.
--- NOTE | ~2024-11-21 | XR_ITS ---
EXAMINATION: XR chest 2V DATE: 11/21/2024 12:37 INDICATION: Left arm pain, weakness and palpitations TECHNIQUE: PA and lateral views of the chest were obtained. COMPARISON: None FINDINGS: The lungs are clear with no focal airspace opacities, pulmonary edema, pleural effusion or pneumothor ax. The cardiomediastinal silhouette is normal. Post cystectomy clips in right upper quadrant. Mild t horacic spondylosis. IMPRESSION: 1. No acute cardiopulmonary disease. Reviewed, dictated and finalized at location B. TRUCTION MILLWRIGHT
[2024-11-21 12:19] VITALS: BP 140/93; PULSE 68; RESP 16; TEMP 36.6; O2SAT 99
--- NOTE | 2024-11-21 12:19 | ED.WEAKNESS ---
HPI - Weakness General Chief complaint: Arrhythmia/Palpitations <Ruth Ortiz PA-C - Last Filed: 11/22/24 09:27> Stated complaint: near syncopal episode, palpitations, left arm pain <Ruth Ortiz PA-C - Last Filed: 11/22/24 09:27> Time Seen by Provider: 11/21/24 12:19 <Ruth Ortiz PA-C - Last Filed: 11/22/24 09:27> Focused HPI: This is a 54 year old female that presents to the ER for multiple complaints. Reports she felt like she had shaky vision, left sided weakness, felt foggy, lightheaded. Reports she feels funny. Reports palpitations, lightheadedness, nausea. Reports she had a hysteroscopy last week with Dr. Tanya Abreu on Tuesday. She went to the gym today and her symptoms started after. Reports she is having some pain behind for belly button. Also reports lower back pain. GENERAL: Well-appearing, well-nourished, and in no acute distress. HEAD: Normocephalic, atraumatic. CHEST: Clear to auscultation. ?No respiratory distress. HEART: Regular rate and rhythm.? NEURO: ?Alert and oriented x3. Patient screened in triage and initial orders placed.? ?Additional care and disposition to be based upon?diagnostic testing and treatment. <Ruth Ortiz PA-C - Last Filed: 11/22/24 09:27> History of Present Illness HPI Narrative: Agree with HPI. Reports she had shaking went lisinopril free of revision bilaterally and then developed some tingling in the left anahy and left arm. Reports that this is new for her. She has mild left-sided headache. No fevers or chills or sweats. <Daniel Devine MD - Last Filed: 11/21/24 18:01> Related Data Home medications: Home Medications ?Medication ?Instructions ?Recorded ?Confirmed ?Last Taken ?Type levocetirizine 5 mg tablet (Xyzal) 5 mg PO DAILY 06/13/24 11/16/24 11/15/24 History multivitamin with minerals-folic 1 tablet PO DAILY 11/15/24 11/16/24 11/12/24 History acid 200 mcg chewable tablet (Adult Multivitamin Gummies) <Ruth Ortiz PA-C - Last Filed: 11/22/24 09:27> Allergies/Adverse reactions: Allergies Allergy/AdvReac Type Severity Reaction Status Date / Time Penicillins Allergy Mild unknown Verified 11/21/24 12:23 <Ruth Ortiz PA-C - Last Filed: 11/22/24 09:27> Review of Systems Constitutional: Constitutional: Reports no additional constitutional complaints <Daniel Devine MD - Last Filed: 11/21/24 18:01> Eyes: Eyes: Reports no additional eye complaints <Daniel Devine MD - Last Filed: 11/21/24 18:01> ENT: Reports system reviewed and no additional complaints, except as documented <Daniel Devine MD - Last Filed: 11/21/24 18:01> Cardiovascular: Cardiovascular: Reports no additional cardiovascular complaints <Daniel Devine MD - Last Filed: 11/21/24 18:01> Respiratory: Respiratory: Reports no additional respiratory complaints <Daniel Devine MD - Last Filed: 11/21/24 18:01> PMFSH Past Medical History Medical History: Medical History Colon cancer screening GERD (gastroesophageal reflux disease) Dyslipidemia <Ruth Ortiz PA-C - Last Filed: 11/22/24 09:27> Social History Social History: Social History Smoking status: Never smoker Alcohol intake: current Drinks per week: 3 Lack of Transportation: No Lack of Food: Never True Current Housing: I Have Housing Concerned About Future Housing: No Difficulty Paying Gas/Electric Bills: No Difficulty Paying for Meds: No Currently Unemployed: No Education: Master's Degree or Higher Difficulty w/ Childcare or Family Care: No Living arrangements: with family Spiritual care concerns: No <Ruth Ortiz PA-C - Last Filed: 11/22/24 09:27> Exam Narrative: GENERAL: Well-appearing, well-nourished, and in no acute distress. HEAD: Normocephalic, atraumatic. EYES: PERRL and EOMI. ENT: Mucous membranes moist. CHEST: Clear to auscultation. No respiratory distress. HEART: Regular rate and rhythm. Normal peripheral pulses. ABDOMEN: Soft, nontender, nondistended. EXTREMITIES: Normal range of motion. No edema. SKIN: Warm, dry, no rash. NEURO: NIH stroke scale 0. No focal deficits. Alert and oriented x3. PSYCH: Normal mood and affect. <Daniel Devine MD - Last Filed: 11/21/24 18:01> Course Course Emergency Course: Symptoms somewhat migraine variant. Discussed with Dr. Stevens. Appropriate for outpatient workup. Patient feels comfortable with this plan. Discussed return precautions. Headache improved with Toradol. Discussed CT findings. <Daniel Devine MD - Last Filed: 11/21/24 18:01> Vital Signs Vital signs: Vital Signs Temperature 98 F 11/21/24 12:19 Pulse Rate 68 11/21/24 12:19 Respiratory Rate 16 11/21/24 12:19 Blood Pressure 140/93 H 11/21/24 12:19 Pulse Oximetry 99 11/21/24 12:19 Temperature 98 F 11/21/24 12:19 Pulse Rate 80 11/21/24 18:12 Respiratory Rate 16 11/21/24 18:12 Blood Pressure 101/75 11/21/24 18:12 Pulse Oximetry 99 11/21/24 18:12 <Ruth Ortiz PA-C - Last Filed: 11/22/24 09:27> Vital Signs Temperature 98 F 11/21/24 12:19 Pulse Rate 68 11/21/24 12:19 Respiratory Rate 16 11/21/24 12:19 Blood Pressure 140/93 H 11/21/24 12:19 Pulse Oximetry 99 11/21/24 12:19 Temperature 98 F 11/21/24 12:19 Pulse Rate 80 11/21/24 18:12 Respiratory Rate 16 11/21/24 18:12 Blood Pressure 101/75 11/21/24 18:12 Pulse Oximetry 99 11/21/24 18:12 <Daniel Devine MD - Last Filed: 11/21/24 18:01> MDM - Weakness Lab Data Result diagrams: 11/21/24 13:42 11/21/24 13:42 <Ruth Ortiz PA-C - Last Filed: 11/22/24 09:27> Labs: Lab Results 11/21/24 11/21/24 11/21/24 Range/Units 13:42 13:49 16:44 WBC 8.6 (4.5-10.0) K/mm3 RBC 4.74 (4.2-5.4) M/mm3 Hgb 13.9 (12.0-15.0) g/dL Hct 41.1 (37.0-47.0) % MCV 86.7 (80-100) fl MCH 29.3 (26-34) pg MCHC 33.8 (32-36) g/dl RDW 11.8 (11.5-14.5) % Plt Count 259 (150-375) k/mm3 MPV 9.3 (7.4-10.4) fl Immature Gran % (Auto) 0.2 (0-0.5) % Neut % (Auto) 54.0 (45.5-73.1) % Lymph % (Auto) 37.4 (18.3-44.2) % [place] % (Auto) 7.2 (2.6-8.5) % Eos % (Auto) 0.7 (0-4.4) % Baso % (Auto) 0.5 (0.2-1.2) % Lymph # (Auto) 3.23 H (0.9-3.2) K/mm3 [place] # (Auto) 0.6 (0.1-0.6) K/mm3 Eos # (Auto) 0.1 (0-0.3) K/mm3 Baso # (Auto) 0.0 (0.0-0.1) K/mm3 Abs Immat Gran (auto) 0.02 (0.00-0.031) K/mm3 Absolute Neuts (auto) 4.7 (1.3-6.7) K/mm3 Absolute Nucleated RBC 0.000 (0.0-0.012) K/mm3 Nucleated RBC % 0.0 (0.0-0.2) % PT 13.0 (11.1-14.7) Seconds INR 0.9 APTT 26.7 (22.3-36.8) Seconds Sodium 142 (137-145) mmol/L Potassium 4.1 (3.4-5.0) mmol/L Chloride 102 (98-107) mmol/L Carbon Dioxide 23 (22-30) mmol/L Anion Gap 17 H (4-12) mmol/L BUN 18 H (7-17) mg/dL Creatinine 0.81 (0.7-1.0) mg/dL Estim Creat Clear Calc 62 ml/min Estimated GFR > 60 (59 - ) Glucose 97 (65-110) mg/dL Calcium 10.0 (8.4-10.2) mg/dL Magnesium 2.0 (1.6-2.3) mg/dL Total Bilirubin 0.6 (0.2-1.3) mg/dL AST 34 (14-36) U/L ALT 36 H (6-35) U/L Alkaline Phosphatase 86 (38-126) U/L Troponin I < 0.012 < 0.012 (0.000-0.034) ng/mL Total Protein 9.0 H (6.3-8.2) g/dL Albumin 5.0 (3.5-5.1) g/dL Lipase 81 (23-300) U/L Urine Color Yellow (Yellow) Urine Appearance Clear (Clear) Urine pH 6.0 (5.0-9.0) Ur Specific [place] 1.004 (1.001-1.035) Urine Protein Negative (Negative) mg/dL Urine Glucose (UA) Negative (Negative) mg/dL Urine Ketones Negative (Negative) mg/dL Ur Blood (Man) Negative (Negative) Urine Nitrate Negative (Negative) Urine Bilirubin Negative (Negative) Urine Urobilinogen 0.2 (<2.0) mg/dL Leukocyte Esterase Rfl Negative (Negative) AVIVA/UL POC Urine HCG, Qual Negative (Negative) <Ruth Ortiz PA-C - Last Filed: 11/22/24 09:27> Lab Results 11/21/24 11/21/24 11/21/24 Range/Units 13:42 13:49 16:44 WBC 8.6 (4.5-10.0) K/mm3 RBC 4.74 (4.2-5.4) M/mm3 Hgb 13.9 (12.0-15.0) g/dL Hct 41.1 (37.0-47.0) % MCV 86.7 (80-100) fl MCH 29.3 (26-34) pg MCHC 33.8 (32-36) g/dl RDW 11.8 (11.5-14.5) % Plt Count 259 (150-375) k/mm3 MPV 9.3 (7.4-10.4) fl Immature Gran % (Auto) 0.2 (0-0.5) % Neut % (Auto) 54.0 (45.5-73.1) % Lymph % (Auto) 37.4 (18.3-44.2) % [place] % (Auto) 7.2 (2.6-8.5) % Eos % (Auto) 0.7 (0-4.4) % Baso % (Auto) 0.5 (0.2-1.2) % Lymph # (Auto) 3.23 H (0.9-3.2) K/mm3 [place] # (Auto) 0.6 (0.1-0.6) K/mm3 Eos # (Auto) 0.1 (0-0.3) K/mm3 Baso # (Auto) 0.0 (0.0-0.1) K/mm3 Abs Immat Gran (auto) 0.02 (0.00-0.031) K/mm3 Absolute Neuts (auto) 4.7 (1.3-6.7) K/mm3 Absolute Nucleated RBC 0.000 (0.0-0.012) K/mm3 Nucleated RBC % 0.0 (0.0-0.2) % PT 13.0 (11.1-14.7) Seconds INR 0.9 APTT 26.7 (22.3-36.8) Seconds Sodium 142 (137-145) mmol/L Potassium 4.1 (3.4-5.0) mmol/L Chloride 102 (98-107) mmol/L Carbon Dioxide 23 (22-30) mmol/L Anion Gap 17 H (4-12) mmol/L BUN 18 H (7-17) mg/dL Creatinine 0.81 (0.7-1.0) mg/dL Estim Creat Clear Calc 62 ml/min Estimated GFR > 60 (59 - ) Glucose 97 (65-110) mg/dL Calcium 10.0 (8.4-10.2) mg/dL Magnesium 2.0 (1.6-2.3) mg/dL Total Bilirubin 0.6 (0.2-1.3) mg/dL AST 34 (14-36) U/L ALT 36 H (6-35) U/L Alkaline Phosphatase 86 (38-126) U/L Troponin I < 0.012 < 0.012 (0.000-0.034) ng/mL Total Protein 9.0 H (6.3-8.2) g/dL Albumin 5.0 (3.5-5.1) g/dL Lipase 81 (23-300) U/L Urine Color Yellow (Yellow) Urine Appearance Clear (Clear) Urine pH 6.0 (5.0-9.0) Ur Specific [place] 1.004 (1.001-1.035) Urine Protein Negative (Negative) mg/dL Urine Glucose (UA) Negative (Negative) mg/dL Urine Ketones Negative (Negative) mg/dL Ur Blood (Man) Negative (Negative) Urine Nitrate Negative (Negative) Urine Bilirubin Negative (Negative) Urine Urobilinogen 0.2 (<2.0) mg/dL Leukocyte Esterase Rfl Negative (Negative) AVIVA/UL POC Urine HCG, Qual Negative (Negative) <Daniel Devine MD - Last Filed: 11/21/24 18:01> Imaging Data Radiologist's impression: ITS Impressions Chest X-Ray 11/21/24 12:43 IMPRESSION: 1. No acute cardiopulmonary disease. Head CT 11/21/24 13:17 Impression: No acute intracranial hemorrhage or suspicious mass effect. Inflammatory sinus disease. <Daniel Devine MD - Last Filed: 11/21/24 18:01> Critical Care Time Critical Care Time Critical Care Time: No <Ruth Ortiz PA-C - Last Filed: 11/22/24 09:27> Discharge Plan Discharge Clinical Impression: Migraine headache with aura Qualifiers: Status migrainosus presence: without status migrainosus Intractability: not intractable Qualified Code(s): G43.109 - Migraine with aura, not intractable, without status migrainosus <Ruth Ortiz PA-C - Last Filed: 11/22/24 09:27> Patient Disposition: Home, Self-Care <Ruth Ortiz PA-C - Last Filed: 11/22/24 09:27> Condition: Stable <Ruth Ortiz PA-C - Last Filed: 11/22/24 09:27> Instructions: Migraine Headache (ED) <Ruth Ortiz PA-C - Last Filed: 11/22/24 09:27> Additional Instructions: Try to stay well hydrated at home. Please return to the emergency department if you develop worsening of your headache or a new headache which is severe, associated with vision changes, associated with neck stiffness or fever, or if it is different from any other headache that you have had before. Return to the emergency department if you develop numbness, weakness or tingling or problems with coordination, or if you develop severe nausea and vomiting and are unable to keep down fluids at home. <Ruth Ortiz PA-C - Last Filed: 11/22/24 09:27> Patient Language: Setswana <Ruth Ortiz PA-C - Last Filed: 11/22/24 09:27> Prescriptions: No Action levocetirizine [Xyzal] 5 mg tablet 5 mg PO DAILY multivit with min-folic acid [Adult Multivitamin Gummies] 200 mcg tablet,chewable 1 tablet PO DAILY hydrocodone-acetaminophen 5-325 mg tablet 1 tablet PO Q4H PRN (Reason: pain) Qty: 20 0RF rosuvastatin 20 mg tablet See Rx Instructions .ROUTE .COMPLEX Qty: 90 3RF Dose Instruction: TAKE 1 TABLET DAILY Rx Instructions: TAKE 1 TABLET DAILY fluticasone propionate 50 mcg/actuation spray,suspension See Rx Instructions .ROUTE .COMPLEX Qty: 48 3RF Dose Instruction: SHAKE LIQUID AND USE 2 SPRAYS IN EACH NOSTRIL DAILY Rx Instructions: SHAKE LIQUID AND USE 2 SPRAYS IN EACH NOSTRIL DAILY <Ruth Ortiz PA-C - Last Filed: 11/22/24 09:27> Follow-up/Referrals: Manjit Orr DO [Primary Care Provider] - 1 Week <Ruth Ortiz PA-C - Last Filed: 11/22/24 09:27> Quality Stroke Scale Stroke Scale 1: Stroke scale date:: 11/21/24 <Daniel Devine MD - Last Filed: 11/21/24 18:01> Stroke scale time:: 16:45 <Daniel Devine MD - Last Filed: 11/21/24 18:01> 1a Level of consciousness: alert-0 <Daniel Devine MD - Last Filed: 11/21/24 18:01> 1b Level of consciousness questions: answers both correctly-0 <Daniel Devine MD - Last Filed: 11/21/24 18:01> 1c Level of consciousness commands: obeys both correctly-0 <Daniel Devine MD - Last Filed: 11/21/24 18:01> 2 Best gaze: normal-0 <Daniel Devine MD - Last Filed: 11/21/24 18:01> 3 Visual: no visual loss-0 <Daniel Devine MD - Last Filed: 11/21/24 18:01> 4 Facial palsy: normal-0 <Daniel Devine MD - Last Filed: 11/21/24 18:01> 5a Motor: left arm: no drift-0 <Daniel Devine MD - Last Filed: 11/21/24 18:01> 5b Motor: right arm: no drift-0 <Daniel Devine MD - Last Filed: 11/21/24 18:01> 6a Motor: left leg: no drift-0 <Daniel Devine MD - Last Filed: 11/21/24 18:01> 6b Motor: right leg: no drift-0 <Daniel Devine MD - Last Filed: 11/21/24 18:01> 7 Limb ataxia: absent-0 <Daniel Devine MD - Last Filed: 11/21/24 18:01> 8 Sensory: normal-0 <Daniel Devine MD - Last Filed: 11/21/24 18:01> 9 Best language: no aphasia-0 <Daniel Devine MD - Last Filed: 11/21/24 18:01> 10 Dysarthria: normal-0 <Daniel Devine MD - Last Filed: 11/21/24 18:01> 11 Extinction and inattention: no abnormality-0 <Daniel Devine MD - Last Filed: 11/21/24 18:01> Level:: 0 <Ruth Ortiz PA-C - Last Filed: 11/22/24 09:27> 0 <Daniel Devine MD - Last Filed: 11/21/24 18:01>
--- NOTE | 2024-11-21 12:20 | ECG_ITS ---
Test Date: 2024-11-21 13:36:31 Measurements Intervals [place] Rate: 61 P: 45 OK: 149 QRS: 78 QRSD: 93 T: 54 QT: 387 QTc: 390 Interpretive Statements SINUS RHYTHM BASELINE ARTIFACT- I, II, III, AVR, AVL, AVF, V1-V6 NORMAL ECG No previous ECG available for comparison Electronically Signed On 11-21-2024 13:48:27 BODY REPAIRER by Sebastián Torres D.O.
[2024-11-21] MEDS: ASPIRIN 81 MG CHEWABLE TABLET 324 MG PO (13:47)
--- OUTSIDE RECORDS SUMMARY | 2024-11-21 13:48 | XMS_ITS | Continuity of Care Document ---
Author Organization [facility] Address [address] [place] [address] [place] [address] Phone Care Team Providers Care Manager Cafe Name Role Phone Cadena OD, Rosendo Unavailable Unavailable Procedures Procedure Date Eye Exam & Treatment Refraction Eye Exam & Treatment CL Replacement - [employer] Disp W/BW [employer] Medical Refraction Eye Exam Established Pt No Charge Contact Lens Check CL Replacement - [employer] Disp W/BW [employer] Medical Eye Exam & Treatment Refraction Eye Exam, New Patient Advance Directives Directive Yes / No Effective Date File Name No Information Encounters Encounter Description Practice Location Reason(s) For Visit Diagnoses Date Provider Providers Copied on Encounter [facility], [address] [place] [address] [address], [place], [place], [id number], tel:[phone] [facility] No Information 7-201 0 Cadena OD Rosendo. [address] , [address], [place], [address], [place]. tel:[phone] [facility], [address] [place] [address] [address], [place], [place], [id number], [place] tel:[phone] [facility] No Information 9-200 9 Cadena OD Rosendo. [address], [place], [address], [place]. tel:[phone] [facility], [address], [place], [place], [id number], [place] tel:[phone] [facility] No Information Oct-0 3-200 8 Krishnasamy Alex. [address], [place], [place], [facility], . tel:[phone] [facility], [address] [place] [address] [address], [place], [place], [id number], [place] tel:[phone] [facility] No Information January-2 1-200 8 Cadena OD Rosendo. Critical access hospital[facility] , [address], [place], [place], [facility], [place]. tel:[phone] [facility], [id number] [place] [address] [address], [place], [place], [id number], tel:[phone] [facility] No Information January-1 3-200 8 Cadena OD Rosendo. Critical access hospital[facility] , [address], [place], [place], [facility], [place]. tel:[phone] [facility], [address] [place] [address] [address], [place], [place], [address], [place] tel:[phone] [facility] No Information 9-200 7 Latrice Lara. [address], [address], [place], [place], [address], [place]. tel:[phone] Family History Family Member Type Diagnosis Age At Onset No Information Payers Payer name Insurance type Covered republican ID Antonieta aguirre(s) [employer] [facility] [id number] Social History Type Description Quantity Date Captured [...]
--- OUTSIDE RECORDS SUMMARY | 2024-11-21 13:48 | XMS_ITS | Referral Summary ---
Author Organization [facility] Address [address] [facility] [place] [address] Care Team Providers Care Brake Assembler Name Role Phone Dharmesh Rhoades MD Primary Care Provider [phone] Source Comments [facility],non-[facility] Affiliates and Associated Physician Practices is amultiple site organization consisting of ambulatory clinics and hospital sitesin [place], [place], [place] and [place]. This disclosure is being madepursuant to the Care Everywhere program and may not contain all information available regarding this patient. Last updated 18.[facility] Allergies Active Allergy Reactions Criticality Noted Date Comments Penicillins Urticaria Medium 12/24/2017 Medications * Be aware that medications may not be up to date on this document. Alwaysverify current medications with the patient. Medication Sig Dispensed Refills Start Date End Date Status ROSUVASTATIN CALCIUM PO Active fluticasone propionate (FLONASE ALLERGY RELIEF) 50 MCG/ACT nasal sprayIndications:Acut e pansinusitis, recurrence not specified [place] 2 sprays into each nostril once daily 1 bottles 12/24/2017 Active albuterol HFA (PROVENTIL;VENTOLIN;P ROAIR) 108 (90 BASE) MCG/ACT inhalerIndications:[place] pansinusitis, recurrence not specified Inh[place] 2 puffs [...] of Treatment Not on file Care Teams Brake Assembler Relationship Specialty Start Date End Date Dharmesh Rhoades MD PCP - General 10/05/18
--- OUTSIDE RECORDS SUMMARY | 2024-11-21 13:48 | XMS_ITS | Clinical Summary ---
Author Organization [facility] Address [address] [place] [address] Care Team Providers Care Card Game Operator Name Role Phone Dharmesh Rhoades MD Primary Care Provider [phone] Source Comments [facility],non-owned Affiliates and Associated Physician Practices is amultiple site organization consisting of ambulatory clinics and hospital sitesin [place], [place], [place] and [place]. This disclosure is being madepursuant to the Care Everywhere program and may not contain all information available regarding this patient. Last updated 18.[facility] Allergies Active Allergy Reactions Criticality Noted Date Comments Penicillins Urticaria Medium 12/24/2017 Medications * Be aware that medications may not be up to date on this document. Alwaysverify current medications with the patient. Medication Sig Dispensed Refills Start Date End Date Status ROSUVASTATIN CALCIUM PO Active fluticasone propionate (FLONASE ALLERGY RELIEF) 50 MCG/ACT nasal sprayIndications:Acut e pansinusitis, recurrence not specified [place] 2 sprays into each nostril once daily 1 bottles 12/24/2017 Active albuterol HFA (PROVENTIL;VENTOLIN;P ROAIR) 108 (90 BASE) MCG/ACT inhalerIndications:Ac [place] pansinusitis, recurrence not specified Inhale 2 puffs [...] age to complete this topic Care Teams Card Game Operator Relationship Specialty Start Date End Date Dharmesh Rhoades MD PCP - General 10/05/18
--- OUTSIDE RECORDS SUMMARY | 2024-11-21 13:48 | XMS_ITS | Encounter Summary ---
Author Organization [facility] Address [address] [place] [address] Care Team Providers Care Business System Manager Name Role Phone Dharmesh Rhoades MD Primary Care Provider [phone] Encounter Details Date Type Department Care Team (Late st Contact Info) Description 10/05/2018 Lab Requisition [facility] DermPath Lab [address] [place] [phone] Gustabo Parham MD [address] [place] [address] Social History Tobacco Use Types Packs/Day Years [...] Comments DERMATOPATHOLOGY Routine 10/04/2018 12:0 0 AM PASSENGER SERVICE AGENT documented in this encounter Results * DERMATOPATHOLOGY (10/04/2018 12:00 AM PASSENGER SERVICE AGENT) Case Report Dermatopathology Report Case: [id number] Authorizing Provider: Gustabo Parham MD Collected: 10/04/2018 12:00 AM Pathologist: Urmila Menchaca MD Received: 10/05/2018 12:07 PM Specimen: Skin, left hindu 9 12:27 PM PASSENGER SERVICE AGENT DERMATOPATHOLOGY LABORATORY Final Diagnosis Specimen A. SKIN, left hindu: SQUAMOUS CELL CARCINOMA, WELL DIFFERENTIATED (C44.329) 9 12:27 PM [facility] DERMATOPATHOLOGY LABORATORY Clinical History R/O BCC, SCC, HAK. 12:27 PM [facility] DERMATOPATHOLOGY LABORATORY Gross Description Specimen A: Received is one formalin filled container labeled with the patient's name and designated left hindu. The specimen consists of a shave biopsy measuring [id number]. Jar 0. 12:27 PM [facility] DERMATOPATHOLOGY LABORATORY Microscopic Description Specimen A. SKIN, left hindu: Arising in the epidermis and extending into the dermis there are irregularly shaped aggregates of keratinocytes showing evidence of premature cornification. 12:27 PM [facility] DERMATOPATHOLOGY LABORATORY Disclaimer An external and internal positive and negative controls are appropriate for the histochemical, immunohistochemical and immunofluorescence stain(s) in this case (if any), except where stated explicitly. The performance characteristics of the stain(s) cited in this report were developed and its performance characteristic determined by the Dermatopathology Laboratory at [facility], directed by Dr. Zabrina Dowling. These tests need not be, and therefore are not, approved by the [place] Food and Drug Administration. The tests are used for clinical purposes. Billing Codes Specimen Charges Stain Charges 37671 1 12:27 PM [facility] DERMATOPATHOLOGY LABORATORY Embedded Images 12:27 PM [facility] DERMATOPATHOLOGY LABORATORY Pathology/Cytolog y TISSUE SPECIMEN FROM SKIN / Unknown 10/04/2018 10/05/2018 12:07 PM PASSENGER SERVICE AGENT Gustabo Parham MD LAB - PATHOLOGY/CYTO LOGY ORDERABLES DERMATOPATHOLOGY LABORATORY [facility] - Department of Dermatology [facility] [facility], [address]th [place] [address], [facility] [phone] documented in this encounter Visit Diagnoses Not on filedocumented in this encounter Care Teams Business System Manager Relationship Specialty Start Date End Date Dharmesh Rhoades MD PCP - General 10/05/18 documented as of this encounter
--- OUTSIDE RECORDS SUMMARY | 2024-11-21 13:48 | XMS_ITS | CONTINUITY OF CARE DOCUMENT ---
Author Name arleenshannen alvina Address Unknown Organization [facility] Address [address] [place] [address] [address] [place] [address] Phone [phone] Care Team Providers Care Pot Puller Name Role Phone Juliana INIGUEZ, Chaitanya Unavailable [phone] Chaitanya Andrews MD Unavailable Tony Andrews MDiq Unavailable [phone] PROBLEMS Condition Status Date Provider Notes Cardiology examination active Chaitanya Andrews MD Numbness and tingling, left arm and leg active Chaitanya Andrews MD ENCOUNTERS Date Type Provider Location Encounter Diag nosis - In-person encounter Office Visit Chaitanya Andrews MD Denominational Office Cardiology examinationNumbness and tingling, left arm and leg VITAL SIGNS Date Observation Value Provider Body Mass Index (Ratio) 24.63 kg/m2 Doug Andrews MD blood pressure, diastolic 86 mm[Hg] Yolanda nkLogheavenly blood pressure, systolic 128 mm[Hg] Evangelina kLogheavenly blood pressure, cuff size regular Nick Brink blood pressure, diastolic 86 mm[Hg] Nick Brink blood pressure, systolic 128 mm[Hg] Wilner Brnik oxygen saturation, oximetry 98 % Teresita Brink pulse rate 52 /min Teresita Brink respiratory rate E&M 12 /min Teresita Brink weight E&M 148 [lb_av] Teresita Brink height E&M 65 [in_i] Teresita Brink ALLERGIES Allergy Name Onset Date Reaction Criticality Status PENICILLIN High Criticality active HISTORY OF MEDICATION USE Medication Status Instructions Dates Provider Indications Com ments Crestor active Teresita Brink Flonase Allergy Relief 50 mcg/actuation spray,suspension active [place] 2 spray into both nostrils twice a day Teresita Brink Xyzal 5 mg tablet active Teresita Brink INSURANCE PROVIDERS Payer name Policy type / Coverage type [place] red constitution party ID [employer] [id number] [facility] [id number] Other [id number] TREATMENT PLAN Date Name Performer Cardiology:Check ECH O C heck CT lumbar spine Chaitanya Andrews MD Date Name CT Lumbar Spine with out contrast Complete Echo HISTORY OF PROCEDURES Procedure Date Procedure Name Provider Procedure Notes S tatus EKG Chaitanya Andrews MD complete d
--- OUTSIDE RECORDS SUMMARY | 2024-11-21 13:48 | XMS_ITS | Encounter Summary ---
Author Organization [facility] Address [address] [place] [address] Care Team Providers Care Ordnance Handler Name Role Phone Dharmesh Rhoades MD Primary Care Provider [phone] Encounter Details Date Type Department Care Team (Late st Contact Info) Description 10/19/2018 Lab Requisition [facility] DermPath Lab [address] [place] [id number] Gustabo Parham MD [address] [place] [address] Social History Tobacco Use Types Packs/Day Years [...] Comments DERMATOPATHOLOGY Routine 10/18/2018 12:0 0 AM BLAST FURNACE BLOWER documented in this encounter Results * DERMATOPATHOLOGY (10/18/2018 12:00 AM BLAST FURNACE BLOWER) Case Report Dermatopathology Report Case: [id number] Authorizing Provider: Gustabo Parham MD Collected: 10/18/2018 12:00 AM Pathologist: Urmila Menchaca MD Received: 10/19/2018 02:20 PM Specimens: A) - Skin, top of right shoulder B) - Skin, left anterior shoulder 9 3:42 PM [facility] FURNACE [facility]OWER DERMATOPATHOLOGY LABORATORY Final Diagnosis Specimen A. 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 SKIN, left anterior shoulder: BASAL CELL CARCINOMA, SUPERFICIAL MULTIFOCAL (C44.619) 3:[address] [facility] DERMATOPATHOLOGY LABORATORY Clinical History A: R/O HAK, Alexander's, BCC. B: R/O HAK, Alexander's, BCC. 3:[address] [facility] DERMATOPATHOLOGY LABORATORY Gross Description Specimen A: Received is one formalin filled container labeled with the patient's name and designated top of right shoulder. The specimen consists of a shave biopsy measuring 9c0p7pn. Jar 0. Specimen B: Received is one formalin filled container labeled with the patient's name and designated left anterior shoulder. The specimen consists of a shave biopsy measuring 5o9j5qs. Jar 0. 3:[address] [facility] DERMATOPATHOLOGY LABORATORY Microscopic Description Specimen [...] cytoplasmic ratio and peripheral palisading. 3:[address] [facility] DERMATOPATHOLOGY LABORATORY Disclaimer An external and internal positive and negative controls are appropriate for the histochemical, immunohistochemical and immunofluorescence stain(s) in this case (if any), except where stated explicitly. The performance characteristics of the stain(s) cited in this report were developed and its performance characteristic determined by the Dermatopathology Laboratory at [facility], directed by Dr. Zabrina Dowling. These tests need not be, and therefore are not, approved by the [place] Food and Drug Administration. The tests are used for clinical purposes. Billing Codes Specimen Charges Stain Charges 04706 74780 1 1 3:[address] [facility] DERMATOPATHOLOGY LABORATORY Embedded Images 3:[address] [facility] DERMATOPATHOLOGY LABORATORY Pathology/Cytology TISSUE SPECIMEN FROM SKIN / Unknown 10/18/2018 10/19/2018 2:20 PM BLAST FURNACE BLOWER Miscellaneous samples (specimen) TISSUE SPECIMEN FROM SKIN / Unknown 10/18/2018 10/19/2018 2:20 PM BLAST FURNACE BLOWER Gustabo Parham MD LAB - PATHOLOGY/CYTO LOGY ORDERABLES DERMATOPATHOLOGY LABORATORY [facility] - Department of Dermatology [address] [place] [address], 5th Floor Lab [address] [phone] documented in this encounter Visit Diagnoses Not on filedocumented in this encounter Care Teams Ordnance Handler Relationship Specialty Start Date End Date Dharmesh Rhoades MD PCP - General 10/05/18 documented as of this encounter
--- OUTSIDE RECORDS SUMMARY | 2024-11-21 13:48 | XMS_ITS | Patient Health Summary ---
Author Organization [facility] Address [address] [facility] [place] [address] Care Team Providers Care Online Project Manager Name Role Phone Dharmesh Rhoades MD Primary Care Provider [phone] Note from [facility],non-owned Affiliates and Associated Physician Practices is amultiple site organization consisting of ambulatory clinics and hospital sitesin [place], [place], [place] and [place]. This disclosure is being madepursuant to the Care Everywhere program and may not contain all information available regarding this patient. Last updated 18.[facility] Allergies * Penicillins(Urticaria) -Medium Criticality Medications * Be aware that medications may not be up to date on this document. Alwaysverify current medications with the patient. * ROSUVASTATIN CALCIUM PO * fluticasone propionate (FLONASE ALLERGY RELIEF) 50 MCG/ACT nasal spray(Started 12/24/2017) [place] 2 sprays into each nostril once daily [...] 10/04/2018) Results * DERMATOPATHOLOGY (10/18/2018 12:00 AM MANAGER COMMUNICATION) Only the most recent of2 resultswithin the time period is included. Case Report Dermatopathology Report Case: [id number] Authorizing Provider: Gustabo Parham MD Collected: 10/18/2018 12:00 AM Pathologist: Urmila Menchaca MD Received: 10/19/2018 02:20 PM Specimens: A) - Skin, top of right shoulder B) - Skin, left anterior shoulder 3:42 PM [facility] DERMATOPATHOLOGY LABORATORY Final Diagnosis Specimen A. 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 SKIN, left anterior shoulder: BASAL CELL CARCINOMA, SUPERFICIAL MULTIFOCAL (C44.619) 3:42 PM [facility] DERMATOPATHOLOGY LABORATORY Clinical History A: R/O HAK, Alexander's, BCC. B: R/O HAK, Alexander's, BCC. 3:42 PM [facility] DERMATOPATHOLOGY LABORATORY Gross Description Specimen A: Received is one formalin filled container labeled with the patient's name and designated top of right shoulder. The specimen consists of a shave biopsy measuring [id number]. Jar 0. Specimen B: Received is one formalin filled container labeled with the patient's name and designated left anterior shoulder. The specimen consists of a shave biopsy measuring 8m2k6uu. Jar 0. 3:42 PM [facility] DERMATOPATHOLOGY LABORATORY Microscopic Description Specimen A. [...] ratio and peripheral palisading. 9 3:42 PM MANAGER COMMUNICATION DERMATOPATHOLOGY LABORATORY Disclaimer An external and internal positive and negative controls are appropriate for the histochemical, immunohistochemical and immunofluorescence stain(s) in this case (if any), except where stated explicitly. The performance characteristics of the stain(s) cited in this report were developed and its performance characteristic determined by the Dermatopathology Laboratory at [facility], directed by Dr. Zabrina Dowling. These tests need not be, and therefore are not, approved by the [place] Food and Drug Administration. The tests are used for clinical purposes. Billing Codes Specimen Charges Stain Charges 16508 28293 1 1 9 3:42 PM MANAGER COMMUNICATION DERMATOPATHOLOGY LABORATORY Embedded Images 9 3:42 PM MANAGER COMMUNICATION DERMATOPATHOLOGY LABORATORY Pathology/Cytology TISSUE SPECIMEN FROM SKIN / Unknown 10/18/2018 10/19/2018 2:20 PM MANAGER COMMUNICATION Miscellaneous samples (specimen) TISSUE SPECIMEN FROM SKIN / Unknown 10/18/2018 10/19/2018 2:20 PM MANAGER COMMUNICATION Gustabo Parham MD LAB - PATHOLOGY/CYTO LOGY ORDERABLES DERMATOPATHOLOGY LABORATORY [facility] - Department of Dermatology [address] [place] [address], 5th Floor Lab [address] [phone] Care Teams Online Project Manager Relationship Specialty Start Date End Date Dharmesh Rhoades MD PCP - General 10/05/18
[2024-11-21 13:50] LABS: BEDSIDEPREGUCG Negative (Negative)
[2024-11-21 14:12] LABS: Add Urine Microscopic? NO; Appearance Urine Clear (Clear); Bilirubin Urine Negative (Negative); Blood Urine Negative (Negative); Color Urine Yellow (Yellow); Glucose Urine UA Negative (Negative); Ketones Urine Negative (Negative); Leukocyte Esterase Ur Negative LEU/UL (Negative); Nitrate Urine Negative (Negative); Protein Urine Negative (Negative); Specific Grav Ur 1.004 (1.001-1.035); Urobilinogen Urine 0.2 mg/dL (<2.0)
[2024-11-21 14:13] LABS: Basophils Percent Auto 0.5 % (0.2-1.2); Eosinophils Absolute Auto 0.1 K/mm3 (0-0.3); Eosinophils Percent Auto 0.7 % (0-4.4); Hematocrit 41.1 % (37.0-47.0); Hemoglobin 13.9 g/dL (12.0-15.0); Immature Granulocyte Absolute 0.02 K/mm3 (0.00-0.031); Immature Granulocyte Percent A 0.2 % (0-0.5); Lymphocytes Absolute Auto 3.23 K/mm3 (0.9-3.2); Lymphocytes Percent Auto 37.4 % (18.3-44.2); Mean Corpuscular HGB Conc 33.8 g/dl (32-36); Mean Corpuscular Hemoglobin 29.3 pg (26-34); Mean Corpuscular Volume 86.7 fl (80-100); Mean Platelet Volume 9.3 fl (7.4-10.4); Monocytes Absolute Auto 0.6 K/mm3 (0.1-0.6); Monocytes Percent Auto 7.2 % (2.6-8.5); Neutrophils Absolute Auto 4.7 K/mm3 (1.3-6.7); Platelet Count Result 259 k/mm3 (150-375); Red Blood Count 4.74 M/mm3 (4.2-5.4); Red Cell Distribution Width 11.8 % (11.5-14.5); White Blood Count 8.6 K/mm3 (4.5-10.0)
[2024-11-21 14:15] LABS: INR 0.9; Partial Thromboplastin Time 26.7 Seconds (22.3-36.8)
[2024-11-21 14:16] LABS: Alanine Aminotransferase 36 U/L (6-35); Alkaline Phosphatase 86 U/L (38-126); Anion Gap 17 mmol/L (4-12); Aspartate Amino Transferase 34 U/L (14-36); Bilirubin,Total 0.6 mg/dL (0.2-1.3); Blood Urea Nitrogen 18 mg/dL (7-17); Carbon Dioxide 23 mmol/L (22-30); Chloride 102 mmol/L (98-107); Estimated CRCL calculation 62 ml/min; Estimated Glomerular Filt Rate > 60; Glucose 97 mg/dL (65-110); Lipase 81 U/L (23-300); Potassium 4.1 mmol/L (3.4-5.0); Sodium 142 mmol/L (137-145)
[2024-11-21 14:27] LABS: Troponin I < 0.012 ng/mL (0.000-0.034)
--- OUTSIDE RECORDS SUMMARY | 2024-11-21 15:25 | XMS_ITS | Encounter Summary ---
Author Organization [facility] Address [address] [place] [address] Care Team Providers Care Wood Flour Miller Name Role Phone Dharmesh Rhoades MD Primary Care Provider [phone] Encounter Details Date Type Department Care Team (Late st Contact Info) Description 10/19/[address] [facility] DermPath Lab [address] [place] [phone] Gustabo Parham MD [address] [place] [address] Social History Tobacco Use Types Packs/Day Years [...] Comments DERMATOPATHOLOGY Routine 10/18/2018 12:0 0 AM ANIMAL GROOMER documented in this encounter Results * DERMATOPATHOLOGY (10/18/2018 12:00 AM ANIMAL GROOMER) Case Report Dermatopathology Report Case: [id number] Authorizing Provider: Gustabo Parham MD Collected: 10/18/2018 12:00 AM Pathologist: Urmila Menchaca MD Received: 10/19/2018 02:20 PM Specimens: A) - Skin, top of right shoulder B) - Skin, left anterior shoulder 9 3:42 PM ANIMAL GROOMER DERMATOPATHOLOGY LABORATORY Final Diagnosis Specimen A. 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 SKIN, left anterior shoulder: BASAL CELL CARCINOMA, SUPERFICIAL MULTIFOCAL (C44.619) 3:42 PM [facility] DERMATOPATHOLOGY LABORATORY Clinical History A: R/O HAK, Alexander's, BCC. B: R/O HAK, Alexander's, BCC. 3:42 PM [facility] DERMATOPATHOLOGY LABORATORY Gross Description Specimen A: Received is one formalin filled container labeled with the patient's name and designated top of right shoulder. The specimen consists of a shave biopsy measuring [id number]. Jar 0. Specimen B: Received is one formalin filled container labeled with the patient's name and designated left anterior shoulder. The specimen consists of a shave biopsy measuring 3j3p9vo. Jar 0. 3:42 PM [facility] DERMATOPATHOLOGY LABORATORY Microscopic Description [...] cytoplasmic ratio and peripheral palisading. 3:42 PM [facility] DERMATOPATHOLOGY LABORATORY Disclaimer An [...] purposes. Billing Codes Specimen Charges Stain Charges 07599 68081 1 1 3:42 PM [facility] DERMATOPATHOLOGY LABORATORY Embedded Images 3:42 PM [facility] DERMATOPATHOLOGY LABORATORY Pathology/Cytology TISSUE SPECIMEN FROM SKIN / Unknown 10/18/2018 10/19/2018 2:20 PM ANIMAL GROOMER Miscellaneous samples (specimen) TISSUE SPECIMEN FROM SKIN / Unknown 10/18/2018 10/19/2018 2:20 PM ANIMAL GROOMER Gustabo Parham MD LAB - PATHOLOGY/CYTO LOGY ORDERABLES DERMATOPATHOLOGY LABORATORY [facility] - Department of Dermatology [address] [place] [address], 5th Floor Lab [address] [phone] documented in this encounter Visit Diagnoses Not on filedocumented in this encounter Care Teams Wood Flour Miller Relationship Specialty Start Date End Date Dharmesh Rhoades MD PCP - General 10/05/18 documented as of this encounter
--- OUTSIDE RECORDS SUMMARY | 2024-11-21 15:25 | XMS_ITS | Patient Health Summary ---
Author Organization [facility] Address [address] [facility] [place] [address] Care Team Providers Care High School Foreign Language Tutor Name Role Phone Dharmesh Rhoades MD Primary Care Provider [phone] Note from [facility],non-owned Affiliates and Associated Physician Practices is amultiple site organization consisting of ambulatory clinics and hospital sitesin [place], [place] and [place]. This disclosure is being madepursuant to the Care Everywhere program and may not contain all information available regarding this patient. Last updated 18.[facility] Allergies * Penicillins(Urticaria) -Medium Criticality Medications * Be aware that medications may not be up to date on this document. Alwaysverify current medications with the patient. * ROSUVASTATIN CALCIUM PO * fluticasone propionate (FLONASE ALLERGY RELIEF) 50 MCG/ACT nasal spray(Started 12/24/2017) [place] 2 sprays into each nostril once daily [...] 10/04/2018) Results * DERMATOPATHOLOGY (10/18/2018 12:00 AM COAT FINISHER) Only the most recent of2 resultswithin the time period is included. Case Report Dermatopathology Report Case: [id number] Authorizing Provider: Gustabo Parham MD Collected: 10/18/2018 12:00 AM Pathologist: Urmila Menchaca MD Received: 10/19/2018 02:20 PM Specimens: A) - Skin, top of right shoulder B) - Skin, left anterior shoulder 3:42 PM [facility] DERMATOPATHOLOGY LABORATORY Final Diagnosis Specimen A. 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 SKIN, left anterior shoulder: BASAL CELL CARCINOMA, SUPERFICIAL MULTIFOCAL (C44.619) 3:42 PM [facility] DERMATOPATHOLOGY LABORATORY Clinical History A: R/O HAK, Alexander's, BCC. B: R/O HAK, Alexander's, BCC. 3:42 PM [facility] DERMATOPATHOLOGY LABORATORY Gross Description Specimen A: Received is one formalin filled container labeled with the patient's name and designated top of right shoulder. The specimen consists of a shave biopsy measuring 2q6p3nj. Jar 0. Specimen B: Received is one formalin filled container labeled with the patient's name and designated left anterior shoulder. The specimen consists of a shave biopsy measuring 5j4y8ai. Jar 0. 3:42 PM [facility] DERMATOPATHOLOGY LABORATORY Microscopic Description Specimen [...] ratio and peripheral palisading. 9 3:42 PM COAT FINISHER DERMATOPATHOLOGY LABORATORY Disclaimer An external and internal positive and negative controls are appropriate for the histochemical, immunohistochemical and immunofluorescence stain(s) in this case (if any), except where stated explicitly. The performance characteristics of the stain(s) cited in this report were developed and its performance characteristic determined by the Dermatopathology Laboratory at [facility], directed by Dr. Zabrina Dowling. These tests need not be, and therefore are not, approved by the [place] Food and Drug Administration. The tests are used for clinical purposes. Billing Codes Specimen Charges Stain Charges 00296 40980 1 1 9 3:42 PM COAT FINISHER DERMATOPATHOLOGY LABORATORY Embedded Images 9 3:42 PM COAT FINISHER DERMATOPATHOLOGY LABORATORY Pathology/Cytology TISSUE SPECIMEN FROM SKIN / Unknown 10/18/2018 10/19/2018 2:20 PM COAT FINISHER Miscellaneous samples (specimen) TISSUE SPECIMEN FROM SKIN / Unknown 10/18/2018 10/19/2018 2:20 PM COAT FINISHER Gustabo Parham MD LAB - PATHOLOGY/CYTO LOGY ORDERABLES DERMATOPATHOLOGY LABORATORY [facility] - Department of Dermatology [address] [place] [address], 5th Floor Lab [address] [phone] Care Teams High School Foreign Language Tutor Relationship Specialty Start Date End Date Dharmesh Rhoades MD PCP - General 10/05/18
--- OUTSIDE RECORDS SUMMARY | 2024-11-21 15:25 | XMS_ITS | Clinical Summary ---
Author Organization [facility] Address [address] [facility] [place] [address] Care Team Providers Care Parking Lot Laborer Name Role Phone Dharmesh Rhoades MD Primary Care Provider [phone] Source Comments [facility],non-owned Affiliates and Associated Physician Practices is amultiple site organization consisting of ambulatory clinics and hospital sitesin [place], [place], [place] and [place]. This disclosure is being madepursuant to the Care Everywhere program and may not contain all information available regarding this patient. Last updated 18.[facility] Allergies Active Allergy Reactions Criticality Noted Date Comments Penicillins Urticaria Medium 12/24/2017 Medications * Be aware that medications may not be up to date on this document. Alwaysverify current medications with the patient. Medication Sig Dispensed Refills Start Date End Date Status ROSUVASTATIN CALCIUM PO Active fluticasone propionate (FLONASE ALLERGY RELIEF) 50 MCG/ACT nasal sprayIndications:Acut e pansinusitis, recurrence not specified [place] 2 sprays into each nostril once daily 1 bottles 12/24/2017 Active albuterol HFA (PROVENTIL;VENTOLIN;P ROAIR) 108 (90 BASE) MCG/ACT inhalerIndications:Ac chemehuevi pansinusitis, recurrence not specified Inh[place] 2 puffs [...] age to complete this topic Care Teams Parking Lot Laborer Relationship Specialty Start Date End Date Dharmesh Rhoades MD PCP - General 10/05/18
--- OUTSIDE RECORDS SUMMARY | 2024-11-21 15:25 | XMS_ITS | Continuity of Care Document ---
Author Organization [facility] [place] [address] [place] [address] [place] [address] Phone Care Team Providers Care Paring Machine Operator Name Role Phone Cadena OD, Rosendo Unavailable Unavailable Procedures Procedure Date Eye Exam & Treatment Refraction Eye Exam & Treatment CL Replacement - Vistakon Disp W/BW Soft [email or web address] Medical Refraction Eye Exam Established Pt No Charge Contact Lens Check CL Replacement - Vistakon Disp W/BW Soft [email or web address] Medical Eye Exam & Treatment Refraction Eye Exam, New Patient Advance Directives Directive Yes / No Effective Date File Name No Information Encounters Encounter Description Practice Location Reason(s) For Visit Diagnoses Date Provider Providers Copied on Encounter [facility], [address] [place] [address] [address], [place], [place], [id number], tel:[phone] [facility] No Information 7-201 0 Cadena OD Rosendo. [address], [place], [address], [place]. tel:[phone] [facility], [address] [place] [address] [address], [place], [place], [address], [place] tel:[phone] [facility] No Information 9-200 9 Cadena OD Rosendo. [address], [place], [address], [place]. tel:[phone] [facility], [address], [place], [place], [address], [place] tel:[phone] [facility] [place] No Information Oct-0 3-200 8 Krishnasamy Alex. [address] [facility] [address], [place], [place], [facility], . tel:[phone] [facility], [address] [place] [address] [address], [place], [place], [address], [place] tel:[phone] [facility] [place] No Information January-2 1-200 8 Cadena OD Rosendo. [facility] , [address], [place], [place], [facility], [place]. tel:[phone] [facility], [address] [place] [address] [address], [place], [place], [address], tel:[phone] [facility] No Information January-1 3-200 8 Cadena OD Rosendo. [facility] , [address], [place], [place], [facility], [place]. tel:[phone] [facility], [address] [place] [address] [address], [place], [place], [address], [place] tel:[phone] [facility] No Information 9-200 7 Latrice Lara. [address], [place], [place], [address], [place]. tel:[phone] Family History Family Member Type Diagnosis Age At Onset No Information Payers Payer name Insurance type Covered constitution party ID Antonieta aguirre(s) [employer] [facility] [id number] Social History Type Description Quantity Date Captured [...]
--- OUTSIDE RECORDS SUMMARY | 2024-11-21 15:25 | XMS_ITS | Referral Summary ---
Author Organization [facility] Address [address] [facility] [place] [address] Care Team Providers Care Boat Hop Name Role Phone Dharmesh Rhoades MD Primary Care Provider [phone] Source Comments [facility] Affiliates and Associated Physician Practices is amultiple site organization consisting of ambulatory clinics and hospital sitesin [place], [place], [place] and [place]. This disclosure is being madepursuant to the Care Everywhere program and may not contain all information available regarding this patient. Last updated 18.[facility] Allergies Active Allergy Reactions Criticality Noted Date Comments Penicillins Urticaria Medium 12/24/2017 Medications * Be aware that medications may not be up to date on this document. Alwaysverify current medications with the patient. Medication Sig Dispensed Refills Start Date End Date Status ROSUVASTATIN CALCIUM PO Active fluticasone propionate (FLONASE ALLERGY RELIEF) 50 MCG/ACT nasal sprayIndications:Acut e pansinusitis, recurrence not specified [place] 2 sprays into each nostril once daily 1 bottles 12/24/2017 Active albuterol HFA (PROVENTIL;VENTOLIN;P ROAIR) 108 (90 BASE) MCG/ACT inhalerIndications:Ac [place] pansinusitis, recurrence not specified Inhale 2 puffs [...] of Treatment Not on file Care Teams Boat Hop Relationship Specialty Start Date End Date Dharmesh Rhoades MD PCP - General 10/05/18
--- OUTSIDE RECORDS SUMMARY | 2024-11-21 15:25 | XMS_ITS | Encounter Summary ---
Author Organization [facility] Address [address] [place] [address] Care Team Providers Care Photo Offset Printer Name Role Phone Dharmesh Rhoades MD Primary Care Provider [phone] Encounter Details Date Type Department Care Team (Late st Contact Info) Description 10/05/2018 Lab Requisition [facility] DermPath Lab [address] [place] [id number] Gustabo Parham MD [address] [place] [address] Social History Tobacco Use Types Packs/Day Years [...] Comments DERMATOPATHOLOGY Routine 10/04/2018 12:0 0 AM BALLET PROFESSOR documented in this encounter Results * DERMATOPATHOLOGY (10/04/2018 12:00 AM BALLET PROFESSOR) Case Report Dermatopathology Report Case: [id number] Authorizing Provider: Gustabo Parham MD Collected: 10/04/2018 12:00 AM Pathologist: Urmila Menchaca MD Received: 10/05/2018 12:07 PM Specimen: Skin, left mandaen 9 12:27 PM BALLET PROFESSOR DERMATOPATHOLOGY LABORATORY Final Diagnosis Specimen A. SKIN, left mandaen: SQUAMOUS CELL CARCINOMA, WELL DIFFERENTIATED (C44.329) 9 12:27 PM [facility] DERMATOPATHOLOGY LABORATORY Clinical History R/O BCC, SCC, HAK. 12:27 PM [facility] DERMATOPATHOLOGY LABORATORY Gross Description Specimen A: Received is one formalin filled container labeled with the patient's name and designated left mandaen. The specimen consists of a shave biopsy measuring [id number]. Jar 0. 12:27 PM [facility] DERMATOPATHOLOGY LABORATORY Microscopic Description Specimen A. SKIN, left mandaen: Arising in the epidermis and extending into the dermis there are irregularly shaped aggregates of keratinocytes showing evidence of premature cornification. 12:27 PM [facility] DERMATOPATHOLOGY LABORATORY Disclaimer An external and internal positive and negative controls are appropriate for the histochemical, immunohistochemical and immunofluorescence stain(s) in this case (if any), except where stated explicitly. The performance characteristics of the stain(s) cited in this report were developed and its performance characteristic determined by the Dermatopathology Laboratory at [facility], directed by Dr. Zabrina Dowling. These tests need not be, and therefore are not, approved by the [place] Food and Drug Administration. The tests are used for clinical purposes. Billing Codes Specimen Charges Stain Charges 91016 1 12:27 PM [facility] DERMATOPATHOLOGY LABORATORY Embedded Images 12:27 PM [facility] DERMATOPATHOLOGY LABORATORY Pathology/Cytolog y TISSUE SPECIMEN FROM SKIN / Unknown 10/04/2018 10/05/2018 12:07 PM BALLET PROFESSOR Gustabo Parham MD LAB - PATHOLOGY/CYTO LOGY ORDERABLES DERMATOPATHOLOGY LABORATORY [facility] - Department of Dermatology [facility] [facility], 5th [place] [address], [facility] [phone] documented in this encounter Visit Diagnoses Not on filedocumented in this encounter Care Teams Photo Offset Printer Relationship Specialty Start Date End Date Dharemsh Rhoades MD PCP - General 10/05/18 documented as of this encounter
--- OUTSIDE RECORDS SUMMARY | 2024-11-21 15:25 | XMS_ITS | CONTINUITY OF CARE DOCUMENT ---
Author Name arleenshannen alvina Address Unknown Organization [facility] Address [address] [place] [address] [address] [place] [address] Phone [phone] Care Team Providers Care Ore Mixer Name Role Phone Juliana INIGUEZ, Chaitanya Unavailable [phone] Chaitanya Andrews MD Unavailable [phone] Tony Andrews MDiq Unavailable PROBLEMS Condition Status Date Provider Notes Cardiology examination active Chaitanya Andrews MD Numbness and tingling, left arm and leg active Chaitanya Andrews MD ENCOUNTERS Date Type Provider Location Encounter Diag nosis - In-person encounter Office Visit Chaitanya Andrews MD [facility] Cardiology examinationNumbness and tingling, left arm and leg VITAL SIGNS Date Observation Value Provider Body Mass Index (Ratio) 24.63 kg/m2 Doug Andrews MD blood pressure, diastolic 86 mm[Hg] Yolanda nkLogheavenly blood pressure, systolic 128 mm[Hg] Evangelina kLogheavenly blood pressure, cuff size regular Nick Brink blood pressure, diastolic 86 mm[Hg] Nick Brink blood pressure, systolic 128 mm[Hg] Wilner Brink oxygen saturation, oximetry 98 % Teresita Brink [...] Flonase Allergy Relief 50 mcg/actuation spray,suspension active [place] 2 spray into both nostrils twice a day Teresita Brink Xyzal 5 mg tablet active Teresita Brink INSURANCE PROVIDERS Payer name Policy type / Coverage type [place] red green party ID [facility] [id number] [facility] [id number] Other [id number] TREATMENT PLAN Date Name Performer Cardiology:Check ECH O C heck CT lumbar spine Chaitanya Andrews MD Date Name CT Lumbar Spine with out contrast Complete Echo HISTORY OF PROCEDURES Procedure Date Procedure Name Provider Procedure Notes S tatus EKG Chaitanya Andrews MD complete d
[2024-11-21 15:30] VITALS: PULSE 67
--- NOTE | 2024-11-21 16:42 | ECG_ITS ---
Test Date: 2024-11-21 13:44:53 Measurements Intervals [place] Rate: 54 P: 47 OK: 157 QRS: 79 QRSD: 93 T: 47 QT: 408 QTc: 389 Interpretive Statements SINUS BRADYCARDIA BASELINE ARTIFACT- I, II, AVR, V4-V5 BORDERLINE ECG Compared to ECG 11/21/2024 13:36:31 HEART RATE HAS DECREASED Electronically Signed On 11-21-2024 15:45:44 BUSINESS COMPUTERS TEACHER by Sebastián Torres D.O.
--- NOTE | 2024-11-21 16:45 | ECG_ITS ---
Test Date: 2024-11-21 16:47:19 Measurements Intervals [place] Rate: 52 P: 31 MN: 170 QRS: 60 QRSD: 86 T: 45 QT: 433 QTc: 404 Interpretive Statements SINUS BRADYCARDIA LOW QRS VOLTAGE IN PRECORDIAL LEADS BASELINE ARTIFACT- I, II, AVR, AVL, AVF BORDERLINE ECG Compared to ECG 11/21/2024 13:44:53 Low QRS voltage now present Electronically Signed On 11-21-2024 19:04:20 SALES ROUTE DRIVER HELPER by Sebastián Torres D.O.
[2024-11-21] MEDS: KETOROLAC 30 MG/ML VIAL (*BKC) IV PUSH (17:12)
[2024-11-21 17:23] VITALS: BP 130/83; PULSE 60; RESP 16; O2SAT 98
[2024-11-21 17:30] LABS: Troponin I < 0.012 ng/mL (0.000-0.034)
[2024-11-21 18:12] VITALS: BP 101/75; PULSE 80; RESP 16; O2SAT 99
== END 2024-11-21 18:15 | disposition home or self-care (01) ==
PROVIDERS: Emergency Medicine; Physician Assistant; Emergency Provider Emergency Medicine; PCP Internal Medicine
DX: G43.109 Migraine with aura, not intractable, without status migrainosus (principal); K21.9 Gastro-esophageal reflux disease without esophagitis; E78.5 Hyperlipidemia, unspecified
CPT/HCPCS: 36415; 70450; 71046; 80053; 81003; 81025; 83690; 83735; 84484; 85025; 85610; 85730; 93005; 96374; 99284; A9270; J1885

== ENCOUNTER 2024-12-10 08:10 | Outpatient (CLI) | payer OTHER, BC, SELFPAY ==
--- NOTE | ~2024-12-10 | MR_ITS ---
MRI of the cervical spine Clinical History: Radiculopathy Technique: Axial T2-weighted and gradient images, and sagittal T1-weighted, T2-weighted, and STIR monique ges were acquired. Findings: There is reversal normal cervical lordosis. No fracture or subluxation seen. There is fusio n across the C5 and C6 disc space. No suspicious bone marrow signal abnormality seen. At C2-C3, there is minimal disc osteophyte complex. No spinal canal stenosis, cord compression, or ne ural foraminal narrowing. At C3-C4, there is moderate degenerative disc narrowing. There is left paracentral disc ossify comple x with minimal flattening of the left side of the ventral cord. Probable minimal left neural foramina l narrowing. Right neural foramen preserved. At C4-C5, there is moderate to advanced degenerative disc narrowing. There is disc ossify complex. No ariel canal stenosis or neural foraminal narrowing. At C5-C6, there is no disc bulge or herniation. No spinal canal stenosis, cord compression, or neural foraminal narrowing. At C6-C7, there is moderate degenerative disc narrowing. There is minimal disc bulge. No ariel canal stenosis or cord compression. Probable minimal left neural foraminal narrowing. Right neural foramen preserved. No abnormal signal seen in the spinal cord. Paravertebral soft tissues are unremarkable. Impression: [id number] degenerative spondylosis, as above. Reviewed, dictated and finalized at [facility] M. Impression: [id number] degenerative spondylosis, as above.
== END 2024-12-10 08:11 | disposition home or self-care (01) ==
LOC: GOSHIMG 08:11
PROVIDERS: PCP Nurse Practitioner; Visit Provider Nurse Practitioner
DX: M47.22 Other spondylosis with radiculopathy, cervical region (principal); Z98.1 Arthrodesis status
CPT/HCPCS: 72141

== ENCOUNTER 2024-12-27 15:39 | Outpatient (CLI) | payer OTHER, BC, SELFPAY ==
--- NOTE | ~2024-12-27 | MR_ITS ---
MRI of the brain Clinical History: Paresthesia scan Technique: Axial and sagittal T1-weighted images were acquired. These were followed by axial T2-weigh arabella, diffusion weighted, gradient, and FLAIR images. Thin cut axial and coronal T1-weighted and T2-we ighted images were performed through the internal auditory canals. Findings: There is no abnormal signal in the brain parenchyma. No acute infarct, intracranial hemorrh age, or mass lesion. Ventricles and subarachnoid spaces are unremarkable. Orbits are unremarkable. Paranasal sinuses and m astoid air cells are essentially clear. Major intracranial flow voids appear intact. Sagittal midline structures are intact. No abnormal mass lesion seen at the internal auditory canals or CP angle regions. IMPRESSION: No significant abnormality seen. Reviewed, dictated and finalized at location .
== END 2024-12-27 15:40 | disposition home or self-care (01) ==
LOC: GOSHIMG 15:39
PROVIDERS: PCP Nurse Practitioner; Visit Provider Nurse Practitioner
DX: R20.2 Paresthesia of skin (principal); H53.9 Unspecified visual disturbance
CPT/HCPCS: 70551

== ENCOUNTER 2025-05-30 06:58 | Outpatient (CLI) | payer OTHER, BC, SELFPAY ==
--- NOTE | ~2025-05-30 | MM_ITS ---
EXAMINATION: MM screening [facility] BI w pretty HISTORY: Screening TECHNIQUE: Craniocaudal and mediolateral oblique 3-D tomosynthesis images were obtained and synthetic 2-D images were generated. CAD analysis was submitted and interpreted. COMPARISON: Mammograms from 05/04/2024, 12/12/2023, 06/13/2023 and 05/20/2022 BREAST PARENCHYMAL COMPOSITION: There are scattered areas of fibroglandular density. FINDINGS: Mass in the upper outer quadrant of the right breast, anterior depth. No suspicious calcifications or architectural distortion. IMPRESSION: 1. Mass in the upper outer quadrant of the right breast, anterior depth. The study is incomplete. A diagnostic right breast mammogram and a diagnostic right breast ultrasound is recommended. 2. No mammographic evidence for malignancy in the left breast. BI-RADS Category 0: Incomplete-needs additional imaging evaluation Reviewed, dictated and finalized at location Q. IMPRESSION: 1. Mass in the upper outer quadrant of the right breast, anterior depth. The st udy is incomplete. A diagnostic right breast mammogram and a diagnostic right b reast ultrasound is recommended. 2. No mammographic evidence for malignancy in the left breast. BI-RADS Category 0: Incomplete-needs additional imaging evaluation
== END 2025-05-30 06:59 | disposition home or self-care (01) ==
LOC: ANHFOHIMG 06:58
PROVIDERS: PCP Physician Assistant; Visit Provider Obstetrics & Gynecology
DX: Z12.31 Encounter for screening mammogram for malignant neoplasm of breast (principal); R92.8 Other abnormal and inconclusive findings on diagnostic imaging of breast
CPT/HCPCS: 77063; 77067

== ENCOUNTER 2025-06-13 08:55 | Outpatient (CLI) | payer OTHER, BC, SELFPAY ==
--- NOTE | ~2025-06-13 | MMUS_ITS ---
EXAMINATION: US breast RT limited, MM diagnostic emilia RT w pretty HISTORY: Inconclusive mammogram TECHNIQUE: Additional images of the right breast]] were performed using full field digital mammography. 3-D tomosynthesis were also obtained and synthetic 2- D images were generated. CAD analysis was submitted and interpreted. Resolution right breast ultrasound was performed.] ] COMPARISON: Mammogram 05/30/2025 BREAST PARENCHYMAL COMPOSITION: There are scattered areas of fibroglandular density. FINDINGS: MAMMOGRAPHIC FINDINGS: There is a 7mm mass in the right breast at the 12:00 position which corresponds with a benign cyst by sonography. ULTRASOUND: There is a 7 mm cyst in the right breast at 12:00 position 2 cm from the nipple. There is a mammographic correlate. The finding is benign. IMPRESSION/RECOMMENDATION: 1. Benign findings in the right breast. Annual screening mammogram is recommended. BI-RADS2: Benign Reviewed, dictated and finalized at location Q. IMPRESSION/RECOMMENDATION: 1. Benign findings in the right breast. Annual screening mammogram is recommend ed. BI-RADS2: Benign IMPRESSION/RECOMMENDATION: 1. Benign findings in the right breast. Annual screening mammogram is recommend ed. BI-RADS2: Benign
--- OUTSIDE RECORDS SUMMARY | 2025-06-13 09:21 | XMS_ITS | Encounter Summary ---
Author Organization [facility] Address [address] [place] [address] Care Team Providers Care Rn Embedded Name Role Phone Dharmesh Rhoades MD Primary Care Provider [phone] Encounter Details Date Type Department Care Team (Late st Contact Info) Description 10/19/2018 Lab Requisition [facility] DermPath Lab [address] [place] [id number] Gustabo Parham MD [address] [place] [address] Social History Tobacco Use Types Packs/Day Years Used Date Smoking Tobacco: Never Smokeless Tobacco: Never Comments No Sex and Gender Information Value Date Recorded Sex Assigned at Not on file Legal Sex Female 6:45 AM CDT Gender Identity Not on file Sexual Orientation Not on file documented as of this encounter Plan of Treatment Not on file documented as of this encounter Procedures Procedure Name Priority Date/Time Associated Diagnosis Comments DERMATOPATHOLOGY Routine 10/18/2018 12:0 0 AM PULPER OPERATOR documented in this encounter Results * DERMATOPATHOLOGY (10/18/2018 12:00 AM PULPER OPERATOR) Case Report Dermatopathology Report Case: [id number] Authorizing Provider: Gustabo Parham MD Collected: 10/18/2018 12:00 AM Pathologist: Urmila Menchaca MD Received: 10/19/2018 02:20 PM Specimens: A) - Skin, top of right shoulder B) - Skin, left anterior shoulder 9 3:42 PM PULPER OPERATOR DERMATOPATHOLOGY LABORATORY Final Diagnosis Specimen A. 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 SKIN, left anterior shoulder: BASAL CELL CARCINOMA, SUPERFICIAL MULTIFOCAL (C44.619) 3:42 PM [facility] DERMATOPATHOLOGY LABORATORY at [address]42 PULPER OPERATOR Clinical History A: R/O HAK, Alexander's, BCC. B: R/O HAK, Alexander's, BCC. 3:42 PM [facility] DERMATOPATHOLOGY LABORATORY Gross Description Specimen A: Received is one formalin filled container labeled with the patient's name and designated top of right shoulder. The specimen consists of a shave biopsy measuring [id number]. Jar 0. Specimen B: Received is one formalin filled container labeled with the patient's name and designated left anterior shoulder. The specimen consists of a shave biopsy measuring 3r3q6hp. Jar 0. 3:42 PM [facility] DERMATOPATHOLOGY LABORATORY Microscopic Description Specimen A. SKIN, top of right shoulder: Sections show hyperkeratosis, papillomatosis, and acanthosis. There is vacuolar degeneration with hypergranulosis of the stratum granulosum and stratum spinosum. Specimen B. SKIN, left anterior shoulder: Attached to the undersurface of the epidermis, there are small aggregates of basaloid cells with a high nuclear to cytoplasmic ratio and peripheral palisading. 3:42 PM [facility] DERMATOPATHOLOGY LABORATORY Disclaimer An external and internal positive and negative controls are appropriate for the histochemical, immunohistochemical and immunofluorescence stain(s) in this case (if any), except where stated explicitly. The performance characteristics of the stain(s) cited in this report were developed and its performance characteristic determined by the Dermatopathology Laboratory at [facility], directed by Dr. Zabrina Dowling. These tests need not be, and therefore are not, approved by the [place] Food and Drug Administration. The tests are used for clinical purposes. Billing Codes Specimen Charges Stain Charges 57501 14826 1 1 3:42 PM [facility] DERMATOPATHOLOGY LABORATORY Embedded Images 3:42 PM [facility] DERMATOPATHOLOGY LABORATORY Pathology/Cytology TISSUE SPECIMEN FROM SKIN / Unknown 10/18/2018 10/19/2018 2:20 PM PULPER OPERATOR Miscellaneous samples (specimen) TISSUE SPECIMEN FROM SKIN / Unknown 10/18/2018 10/19/2018 2:20 PM PULPER OPERATOR Gustabo Parham MD LAB - PATHOLOGY/CYTOLOGY ORD ERABLES Final Result DERMATOPATHOLOGY LABORATORY [facility] - Department of Dermatology [address] [place] [address] 5th Floor Lab [address] [phone] documented in this encounter Visit Diagnoses Not on filedocumented in this encounter Care Teams Rn Embedded Relationship Specialty Start Date End Date Dharmesh Rhoades MD PCP - General 10/05/18 documented as of this encounter
--- OUTSIDE RECORDS SUMMARY | 2025-06-13 09:21 | XMS_ITS | Clinical Summary ---
Author Organization [facility] Address [address] [facility] [place] [address] Care Team Providers Care Moss Picker Name Role Phone Dharmesh Rhoades MD Primary Care Provider [phone] Source Comments [facility],non-owned Affiliates and Associated Physician Practices is amultiple site organization consisting of ambulatory clinics and hospital sitesin [place], [place], [place] and [place]. This disclosure is being madepursuant to the Care Everywhere program and may not contain all information available regarding this patient. Last updated 18.[facility] Allergies Active Allergy Reactions Criticality Noted Date Comments Penicillins Urticaria Medium 12/24/2017 Medications * Be aware that medications may not be up to date on this document. Alwaysverify current medications with the patient. ROSUVASTATIN CALCIUM PO Active fluticasone propionate (FLONASE ALLERGY RELIEF) 50 MCG/ACT nasal sprayIndication s:Acute pansinusitis, recurrence not specified [place] 2 sprays into each nostril once daily 1 bottles 12/24/2017 Active albuterol HFA (PROVENTIL;VENT WANDA;PROAIR) 108 (90 BASE) MCG/ACT inhalerIndicati ons:Acute pansinusitis, recurrence not specified Inhale 2 puffs [...] 11:51 AM CDT Height 165.1 cm (5' 5) 12/24/2017 11:51 AM CDT Body Mass Index [...] 2019 ZOSTER VACCINE (1 of 2) 2019 DEPRESSION SCREENING 09/26/2024 COVID-19 VACCINE (1 - 2023-2 5 season) 2025 INFLUENZA VACCINE (#1) 2025 HIB VACCINE Aged Out No longer eligi ble based on patient's age to complete this topic HPV VACCINE Aged Out No longer eligi ble based on patient's age to complete this topic MENINGOCOCCAL (Group B) VACC INE SHARED DECISION-MAKING Aged Out No longer eligibl e based on patient's age to complete this topic MENINGOCOCCAL GROUPS A/C/Y/W VACCINE Aged Out No longer eligible b ased on patient's age to complete this topic Insurance [facility] Address: [address] [address] [place] [address] [facility] Address: [address] [place] [address] [facility] Address: [address] [place] [address] SELF PAY NO INSURANCE Member Subscriber Plan / Payer (Ef fective for All Dates) Name:Gill Jenkins Member ID:Not on file Relation to Subscriber:Not on file Name:GILL JENKINS Subscriber ID:Not on file (Home) Address: [address] [place] [address] Payer ID:Not on file Group ID:Not on file Type:Self Pay Address: [place], [place] ANTHEM Blossom Care Teams Moss Picker Relationship Specialty Start Date End Date Dharmesh Rhoades MD PCP - General 10/05/18
--- OUTSIDE RECORDS SUMMARY | 2025-06-13 09:21 | XMS_ITS | Encounter Summary ---
Author Organization [facility] Address [address] [place] [address] Care Team Providers Care Brake Repair Supervisor Name Role Phone Dharmesh Rhoades MD Primary Care Provider [phone] Encounter Details Date Type Department Care Team (Late st Contact Info) Description 10/05/2018 Lab Requisition [facility] [address] [place] [id number] Gustabo Parham MD [address] [place] [address] Social History Tobacco Use Types Packs/Day Years [...] Comments DERMATOPATHOLOGY Routine 10/04/2018 12:0 0 AM GYROSCOPIC ENGINEERING TECHNICIAN documented in this encounter Results * DERMATOPATHOLOGY (10/04/2018 12:00 AM GYROSCOPIC ENGINEERING TECHNICIAN) Case Report Dermatopathology Report Case: [id number] Authorizing Provider: Gustabo Parham MD Collected: 10/04/2018 12:00 AM Pathologist: Urmila Menchaca MD Received: 10/05/2018 12:07 PM Specimen: Skin, left presybeterian 12:27 PM GYROSCOPIC ENGINEERING TECHNICIAN DERMATOPATHOLOGY LABORATORY Final Diagnosis Specimen A. SKIN, left presybeterian: SQUAMOUS CELL CARCINOMA, WELL DIFFERENTIATED (C44.329) 12:27 PM [facility] DERMATOPATHOLOGY LABORATORY at 1226 GYROSCOPIC ENGINEERING TECHNICIAN Clinical History R/O BCC, SCC, HAK. 12:27 PM [facility] DERMATOPATHOLOGY LABORATORY Gross Description Specimen A: Received is one formalin filled container labeled with the patient's name and designated left presybeterian. The specimen consists of a shave biopsy measuring [id number]. Jar 0. 12:27 PM [facility] DERMATOPATHOLOGY LABORATORY Microscopic Description Specimen A. SKIN, left presybeterian: Arising in the epidermis and extending into the dermis there are irregularly shaped aggregates of keratinocytes showing evidence of premature cornification. 12:27 PM [facility] DERMATOPATHOLOGY LABORATORY Disclaimer An external and internal positive and negative controls are appropriate for the histochemical, immunohistochemical and immunofluorescence stain(s) in this case (if any), except where stated explicitly. The performance characteristics of the stain(s) cited in this report were developed and its performance characteristic determined by the Dermatopathology Laboratory at [facility], directed by Dr. Zabrina Dowling. These tests need not be, and therefore are not, approved by the [place] Food and Drug Administration. The tests are used for clinical purposes. Billing Codes Specimen Charges Stain Charges 71963 1 12:27 PM [facility] DERMATOPATHOLOGY LABORATORY Embedded Images 12:27 PM [facility] DERMATOPATHOLOGY LABORATORY Pathology/Cytolog y TISSUE SPECIMEN FROM SKIN / Unknown 10/04/2018 10/05/2018 12:07 PM [facility] us Gustabo Parham MD LAB - PATHOLOGY/CYTOLOGY ORD ERABLES Final Result DERMATOPATHOLOGY LABORATORY [facility] - Department of Dermatology [address] [place] [address], [facility] [phone] documented in this encounter Visit Diagnoses Not on filedocumented in this encounter Care Teams Brake Repair Supervisor Relationship Specialty Start Date End Date Dharmesh Rhoades MD PCP - General 10/05/18 documented as of this encounter
== END 2025-06-13 08:56 | disposition home or self-care (01) ==
LOC: CHSIMG 08:58
PROVIDERS: PCP Physician Assistant; Visit Provider Obstetrics & Gynecology
DX: N60.01 Solitary cyst of right breast (principal)
CPT/HCPCS: 76642; 77061; 77065; G0279